=== PATIENT | male | born 1955 | race Caucasian/White ===

== ENCOUNTER 2023-12-12 13:00 | Outpatient (OUT) | payer MEDICARE, OTHER, SELFPAY ==
--- NOTE | 2023-12-12 13:23 | ECG_ITS ---
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
--- NOTE | 2023-12-12 14:17 | P.GSHP_ITS ---
History of Present Illness History of Present Illness Chief complaint: BPH with obs Narrative: Patient presents for preadmission testing. The patient reports a history of an elevated PSA, nocturia, intermittent urgency with urination, and occasional incomplete bladder emptying. The patient states he's had an MRI, a prostate biopsy, and a cystoscopy. He denies hematuria, dysuria, abdominal pain, fever, or any other complaints. Review of Systems ROS Narrative REVIEW OF SYSTEMS: Negative except as stated in HPI, ten or more systems reviewed. Constitutional: No fever , chills, weakness ENT: No sore throat or epistaxis Cardiovascular: No edema, chest pain, palpitations, or activity intolerance Respiratory: No shortness of breath, cough, or wheezing Musculoskeletal: No joint pain or swelling Gastrointestinal: No abdominal pain, constipation, diarrhea, or vomiting Genitourinary: No dysuria or hematuria Neurological: No numbness, tingling, weakness, or headache Psychiatric: No mood changes PFSH PFSH Medical History (Updated 12/12/23 @ 14:11 by Naila Bond NP) Chronic prostatitis ?N41.1 - Chronic prostatitis (ICD-10) Cough syncope ?R55 - Syncope and collapse (ICD-10) ?R05.4 - Cough syncope (ICD-10) BPH with obstruction/lower urinary tract symptoms ?N40.1 - Benign prostatic hyperplasia with lower urinary tract symptoms (ICD- 10) ?N13.8 - Other obstructive and reflux uropathy (ICD-10) COVID-19 (10/2021) ?U07.1 - COVID-19 (ICD-10) Sleep apnea ?G47.30 - Sleep apnea, unspecified (ICD-10) BPH (benign prostatic hyperplasia) ?N40.0 - Benign prostatic hyperplasia without lower urinary tract symptoms (ICD-10) Elevated PSA ?R97.20 - Elevated prostate specific antigen [PSA] (ICD-10) Heartburn ?R12 - Heartburn (ICD-10) Surgical History (Updated 12/12/23 @ 14:11 by Naila Bond NP) History of colonoscopy ?Z98.890 - Other specified postprocedural states (ICD-10) S/P cystoscopy ?Z98.890 - Other specified postprocedural states (ICD-10) Hx of prostate biopsy (08/30/22) ?Z98.890 - Other specified postprocedural states (ICD-10) History of arthroplasty of knee (06/20/22) ?Z96.659 - Presence of unspecified artificial knee joint (ICD-10) History of arthroplasty of knee (01/31/22) ?Z96.659 - Presence of unspecified artificial knee joint (ICD-10) Family History (Updated 12/12/23 @ 14:14 by Naila Bond NP) Other Alcoholism Depression Family history of cancer Heart disease Varicose veins of both lower extremities Social History (Updated 12/12/23 @ 13:47 by Naila Bond NP) Within the past year, how often did you have a drink containing alcohol: 2-3 times a week Smoking status: Never smoker Highest level of school completed/degree received: high school graduate Meds Home Medications and Allergies Home Medications Medication Instructions Recorded Confirmed Type dutasteride 0.5 mg capsule 0.5 mg PO DAILY 12/12/23 12/12/23 History tamsulosin 0.4 mg capsule (Flomax) 0.4 mg PO DAILY 12/12/23 12/12/23 History Allergies Allergy/AdvReac Type Severity Reaction Status Date / Time No Known Drug Allergies Allergy Verified 12/12/23 13:44 Exam Narrative Exam Narrative: Constitutional: Awake, alert, comfortable, well-appearing, nontoxic, interactive, vital signs as charted Head: Normocephalic, atraumatic Neck: Supple, normal appearance, normal range of motion, no meningeal signs, no lymphadenopathy Respiratory: No respiratory distress, breath sounds clear Cardiovascular: Regular rate and rhythm, strong and regular heart tones Abdomen: Nontender, normal bowel sounds, soft, no CVA tenderness Musculoskeletal: Normal gait, no swelling or edema Skin: No rashes or induration, no lesions, only visible skin inspected Neuro: No neurological deficits, normal sensation Psychiatric: Oriented ?3, normal affect Assessment and Plan Assessment and Plan (1) BPH with obstruction/lower urinary tract symptoms: (2) Elevated PSA: Plan Cystoscopy, transurethral resection of the prostate scheduled with Dr. Faulkner 12/26/2023.
[2023-12-12 14:19] LABS: Basophils Percent Auto 0.6 % (0.2-2.0); Eosinophils Percent Auto 0.6 % (0.9-7.0); Hematocrit 43.4 % (42.0-54.0); Hemoglobin 14.7 g/dL (14.0-18.0); Immature Granulocytes Abs Auto 0.01 10^3/uL (0.00-0.03); Immature Granulocytes Pct Auto 0.1 % (0.0-0.5); Lymphocytes Absolute Auto 1.7 10^3/uL (1.2-3.8); Lymphocytes Percent Auto 24.5 % (20.5-60.0); Mean Corpuscular HGB Conc 33.9 g/dL (29.9-35.2); Mean Corpuscular Hemoglobin 30.5 pg (25.9-34.0); Mean Platelet Volume 9.6 fL (9.5-13.5); Monocytes Absolute Auto 0.6 10^3/uL (0.3-0.8); Monocytes Percent Auto 8.1 % (1.7-12.0); Neutrophils Absolute Auto 4.6 10^3/uL (1.4-6.5); Neutrophils Percent Auto 66.1 % (43.0-75.0); Platelet Count 241 10^3/uL (150-450); Red Blood Count 4.82 10^6/uL (4.70-6.10); White Blood Count 6.9 10^3/uL (4.0-11.0)
[2023-12-12 14:35] LABS: INR 1.01; Partial Thromboplastin Time 28.9 sec (22.3-36.2); Prothrombin Time 10.7 sec (9.0-11.6)
[2023-12-12 14:41] LABS: Anion Gap 9.6; BUN Creatinine Ratio 10.6; Calcium 8.7 mg/dL (8.5-10.1); Carbon Dioxide 27.2 mmol/L (21.0-32.0); Chloride 106 mmol/L (98-107); Estimated GFR (African America >60 (>=60); Estimated GFR (Non-African Ame >60 (>=60); Glucose 117 mg/dL (74-106); Potassium 3.8 mmol/L (3.5-5.1); Sodium 139 mmol/L (136-145)
== END 2023-12-12 13:01 | disposition home or self-care (01) ==
LOC: PST 13:06
PROVIDERS: PCP Family Medicine; Visit Provider Urology
DX: Z01.810 Encounter for preprocedural cardiovascular examination (principal); Z01.812 Encounter for preprocedural laboratory examination; Z01.818 Encounter for other preprocedural examination
CPT/HCPCS: 80048; 85025; 85610; 85730; 93005; G0463

== ENCOUNTER 2023-12-26 09:14 | Day surgery (SDC) | payer MEDICARE, OTHER, SELFPAY ==
[2023-12-12 14:11] VITALS: BP 136/85; PULSE 99; RESP 18; TEMP 36.6; O2SAT 95; BMI 38.1
[2023-12-26] VITALS (12 sets, daily range): BP systolic 110–141; BP diastolic 68–83; PULSE 67–95; RESP 12–20; TEMP 35.9–37; O2SAT 92–100
--- OUTSIDE RECORDS SUMMARY | 2023-12-26 09:18 | XMS_ITS | CCD ---
Author Name Unknown Address [address] [place] [address] Organization [facility] Care Team Providers Care Manager Studio Name Role Phone EUSEBIA HOPPER Primary Care Physician Vida Ferrer Unavailable Unavailable Bunting, DO Laws Primary Care Provider [phone] MD Emmanuel Faulkner Attending Provider FRANKY, DR WHITE Admitting Unavailable FAULKNER, DR WHITE Attending Unavailable BUNTING, DR LAWS Primary Care Unavailable FAULKNER, DR WHITE Consulting Unavailable WEST, DR DELIA Medina Consulting Unavailable FAULKNER, DR WHITE Admitting Unavailable FAULKNER, DR WHITE Attending Unavailable BUNTING, DR LAWS Primary Care Unavailable FAULKNER, DR WHITE Consulting Unavailable GEMBUS, BERNARDO Consulting Unavailable Bunting, DO Laws Primary Care Provider Bunting, DO Laws Attending Provider Emmanuel Faulkner Admitting Unavailable Faulkner, Emmanuel Attending Unavailable Bunting, Eusebia Primary Care Unavailable Bunting, Eusebia Attending Unavailable Bunting, Eusebia Admitting Unavailable Bunting, Eusebia Primary Care Unavailable AIDA BRYAN Attending Unavailable FAULKNEREmmanuel Attending Unavailable FAULKNER, Emmanuel Mcgrath Attending Unavailable FAULKNER, Emmanuel Mcgrath Attending Unavailable FAULKNER, Emmanuel Mcgrath Admitting Unavailable FAULKNER, Emmanuel Mcgrtah Referring Unavailable AIDA BRYAN Attending Unavailable AIDA BRYAN Admitting Unavailable FAULKNER, Emmanuel Mcgrath Attending Unavailable FAULKNER, Emmanuel Mcgrath Attending Unavailable Allergies Allergy Classification Reported Allergen(s) Allergy Type Date of Onset Reaction(s) Facility (1 source) Unable to Assess Drug allergy (disorder) [address] [place] [address] Repository (1 source) No Known Medication Allergies; Translations: [No Known Medication Allergies] Propensity to adverse reactions (disorder) [facility] Repository Medications Current Medications Medication Drug Class(es) Dates Sig (Normalized) Sig (Original) acetaminophen 325 mg / HYDROcodone bitartrate 7.5 mg oral tablet (1 source) Opioid Agonist Start: 08-02-2022 take 1 tablet by mouth once Cummings 325 mg-7.5 mg oral tablet 1 tab(s), Oral, Once, 1 tab(s), Refill(s) 0, Take 1 hour prior to procedure. Don't drive or operate machinery while taking., [facility] [id number], 182, cm, 06/05/22 14:59:00 EDT, Height/Length Dosing, 126.5, kg, 06/05/22 14:59:00 EDT, Weight Dosing Start Date: 08/02/22 Status: Ordered aspirin 81 mg delayed release oral tablet (1 source) Platelet Aggregation Inhibitor, Nonsteroidal Anti-inflammatory Drug Start: 06-20-2022 End: 07-20-2022 take 2 tablets by mouth once daily Aspirin 81 mg Tab-EC 162 mg = 2 tab(s), Oral, Daily, X 30 day(s), # 60 tab(s), Refills(s) 0, Pharmacy: [facility] [id number], 182, cm, 06/05/22 14:59:00 EDT, Height/Length Dosing, 126.5, kg, 06/05/22 14:59:00 EDT, Weight Dosing Start Date: 06/20/22 Stop Date: 07/20/22 Status: Ordered celecoxib 100 mg oral capsule (5 sources) Nonsteroidal Anti-inflammatory Drug Start: 06-20-2022 take 1 capsule by mouth twice daily as needed for pain CeleBREX 100 mg Cap 100 mg = 1 cap(s), Oral, BID, PRN for pain, # 60 cap(s), Refills(s) 0, Pharmacy: [facility] [id number], 182, cm, 06/05/22 14:59:00 EDT, Height/Length Dosing, 126.5, kg, 06/05/22 14:59:00 EDT, Weight Dosing Start Date: 06/20/22 Status: Ordered cephalexin 500 mg oral capsule (1 source) Cephalosporin Antibacterial Start: 06-20-2022 End: 06-25-2022 take 1 capsule by mouth every eight hours Keflex 500 mg Cap 500 mg = 1 cap(s), Oral, q8hr, X 5 day(s), # 15 cap(s), Refills(s) 0, Pharmacy: [facility] [id number], 182, cm, 06/05/22 14:59:00 EDT, Height/Length Dosing, 126.5, kg, 06/05/22 14:59:00 EDT, Weight Dosing Start Date: 06/20/22 Stop Date: 06/25/22 Status: Ordered ciprofloxacin 500 mg oral tablet (1 source) Quinolone Antimicrobial Start: 09-18-2023 End: 10-09-2023 take 1 tablet by mouth every twelve hours Cipro 500 mg Tab 500 mg = 1 tab(s), Oral, q12hr, X 21 day(s), # 42 tab(s), Refills(s) 0, Pharmacy: [facility] [id number], 182, cm, 09/18/23 10:31:00 EDT, Height/Length Dosing, 124.8, kg, 09/18/23 10:31:00 EDT, Weight Dosing Start Date: 09/18/23 Stop Date: 10/09/23 Status: Ordered docusate sodium 100 mg oral capsule (3 sources) Start: 01-31-2022 take 1 capsule by mouth twice daily as needed for constipation Colace 100 mg Cap 100 mg = 1 cap(s), Oral, BID, PRN for constipation, # 20 cap(s), Refills(s) 0, Pharmacy: [facility] [id number], 182, cm, 01/17/22 5:59:00 EST, Height/Length Dosing, 129.4, kg, 01/17/22 5:59:00 EST, Weight Dosing Start Date: 01/31/22 Status: Ordered dutasteride 0.5 mg oral capsule (1 source) 5-alpha Reductase Inhibitor Start: 11-05-2023 take 1 capsule by mouth once daily dutasteride 0.5 mg Cap 0.5 mg = 1 cap(s), Oral, Daily, # 30 cap(s), Refills(s) 2, Pharmacy: [facility] [id number], 182, cm, 11/05/23 13:20:00 EST, Height/Length Dosing, 124.8, kg, 09/18/23 10:31:00 EDT, Weight Dosing Start Date: 11/05/23 Status: Ordered meloxicam 15 mg oral tablet (4 sources) Nonsteroidal Anti-inflammatory Drug Start: 02-01-2022 take 1 tablet by mouth once daily meloxicam 15 mg Tab 15 mg = 1 tab(s), Oral, Daily, # 30 tab(s), Refills(s) 2, Pharmacy: [facility] [id number], 182, cm, 01/17/22 5:59:00 EST, Height/Length Dosing, 129.4, kg, 01/17/22 5:59:00 EST, Weight Dosing Start Date: 02/01/22 Status: Ordered sulfamethoxazole 800 mg / trimethoprim 160 mg oral tablet (4 sources) Dihydrofolate Reductase Inhibitor Antibacterial, Sulfonamide Antimicrobial Start: 05-16-2022 End: 06-27-2022 take 1 tablet by mouth twice daily Bactrim DS 800 mg-160 mg Tab 1 tab(s), Oral, BID for 21 day(s), 42 tab(s), Refill(s) 1, [facility] [id number], 182, cm, 05/16/22 10:51:00 EDT, Height/Length Dosing, 131.2, kg, 05/16/22 10:51:00 EDT, Weight Dosing Start Date: 05/16/22 Stop Date: 06/27/22 Status: Ordered Start: 04-04-2022 End: 04-25-2022 take 1 tablet by mouth twice daily Bactrim DS 800 mg-160 mg Tab 1 tab(s), Oral, BID for 21 day(s), 42 tab(s), Refill(s) 0, [facility] [id number], 182, cm, 04/04/22 9:31:00 EDT, Height/Length Dosing, 131.2, kg, 04/04/22 9:31:00 EDT, Weight Dosing Start Date: 04/04/22 Stop Date: 04/25/22 Status: Ordered tamsulosin hydrochloride 0.4 mg oral capsule (11 sources) alpha-Adrenergic Nicanor Start: 09-18-2023 End: 09-12-2024 take 1 capsule by mouth twice daily tamsulosin 0.4 mg Cap 0.4 mg = 1 cap(s), Oral, BID, X 90 day(s), # 180 cap(s), Refills(s) 3, Pharmacy: [facility] [id number], 182, cm, 09/18/23 10:31:00 EDT, Height/Length Dosing, 124.8, kg, 09/18/23 10:31:00 EDT, Weight Dosing Start Date: 09/18/23 Stop Date: 09/12/24 Status: Ordered Start: 05-16-2022 take 1 capsule by [facility] once daily tamsulosin 0.4 mg Cap 0.4 mg = 1 cap(s), Oral, Daily, # 30 cap(s), Refills(s) 6, Pharmacy: [facility] [id number], 182, cm, 05/16/22 10:51:00 EDT, Height/Length Dosing, 131.2, kg, 05/16/22 10:51:00 EDT, Weight Dosing Start Date: 05/16/22 Status: Ordered Start: 04-04-2022 take 1 capsule by [facility] once daily tamsulosin 0.4 mg Cap 0.4 mg = 1 cap(s), Oral, Daily, # 30 cap(s), Refills(s) 6, Pharmacy: [facility] [id number], 182, cm, 04/04/22 9:31:00 EDT, Height/Length Dosing, 131.2, kg, 04/04/22 9:31:00 EDT, Weight Dosing Start Date: 04/04/22 Status: Ordered Completed/Discontinued Medications Medication Drug Class(es) Dates Sig (Normalized) Sig (Original) acetaminophen 325 mg / oxyCODONE hydrochloride 5 mg oral tablet (4 sources) Opioid Agonist Start: 06-20-2022 Percocet 325 mg-5 mg Tab See Instructions, as needed for pain, 50 tab(s), Refill(s) 0, 1-2 tab(s) Oral q4hr, [facility] [id number], 182, cm, 06/05/22 14:59:00 EDT, Height/Length Dosing, 126.5, kg, 06/05/22 14:59:00 EDT, Weight Dosing Start Date: 06/20/22 Status: Ordered Start: 01-31-2022 Percocet 325 m g-5 mg Tab See Instructions, as needed for pain, 50 tab(s), Refill(s) 0, 1-2 tab(s) Oral q4hr, [facility], 182, cm, 01/17/22 5:59:00 EST, Height/Length Dosing, 129.4, kg, 01/17/22 5:59:00 EST, Weight Dosing Start Date: 01/31/22 Status: Ordered doxycycline hyclate 100 mg oral capsule (2 sources) Tetracycline-class Drug Start: 09-18-2023 doxycy simmons hyclate 100 mg Cap 100 mg = 1 cap(s), Oral, As Directed, Patient to take 1 tab the day before procedure and the 2nd tab the day of procedure once completed, # 2 cap(s), Refills(s) 0, Pharmacy: [facility] [id number], 182, cm, 09/18/23 10:31:00 EDT, Height/Length Dosing, 124.8, kg, 09/18/23 10:31:00 EDT, Weight Dosing Start Date: 09/18/23 Status: Ordered Problems Problem Classification Problem Date Documented Da te Episodic/Chronic Abdominal pain (3 sources) Abdominal pain; Translations: [Unspecified abdominal pain] Onset: 12-05-2023 Episodic Disorders of lipid metabolism (1 source) Mixed hyperlipidemia; Translations: [Mixed hyperlipidemia] Onset: 02-19-2023 Chronic Genitourinary symptoms and ill-defined conditions (12 sources) Urgent desire to urinate; Translations: [Hematuria, unspecified] Onset: 09-07-2022 04-04-2022 Episodic Hyperplasia of prostate (18 sources) Benign prostatic hypertrophy with outflow obstruction; Translations: [Benign prostatic hyperplasia with lower urinary tract symptoms] Onset: 04-04-2022 Chronic Inflammatory conditions of male genital organs (6 sources) Chronic prostatitis; Translations: [Chronic prostatitis] Onset: 09-18-2023 Chronic Inflammatory conditions of male genital organs (14 sources) Prostatitis; Translations: [Inflammatory disease of prostate, unspecified] Onset: 04-04-2022 Episodic Mood disorders (12 sources) Depressive disorder; Translations: [Major depressive disorder, single episode, unspecified] Onset: 09-07-2022 04-04-2022 Chronic Osteoarthritis (20 sources) Arthritis; Translations: [Osteoarthritis of knee] Onset: 06-20-2022 04-04-2022 Chronic Other connective tissue disease (1 source) Presence of unspecified artificial knee joint; Translations: [PRESENCE UNS ARTIFICIAL KNEE JOINT] Onset: 09-07-2022 Chronic Other diseases of kidney and ureters (4 sources) Urinary tract obstruction; Translations: [Other obstructive and reflux uropathy] Onset: 04-04-2022 Episodic Other male genital disorders (2 sources) Disorder of penis; Translations: [Disorder of penis, unspecified] Onset: 04-04-2022 Chronic Other male genital disorders (11 sources) Lesion of penis 04-04-2022 Chronic Other male genital disorders (1 source) Disorder of penis, unspecified; Translations: [DISORDER OF PENIS UNSPECIFIED] Onset: 09-07-2022 Chronic Other male genital disorders (1 source) Hemospermia; Translations: [Hematospermia] Onset: 09-12-2022 Episodic Other screening for suspected conditions (not mental disorders or infectious disease) (20 sources) Raised prostate specific antigen; Translations: [Elevated prostate specific antigen [PSA]] Onset: 04-04-2022 Episodic Residual codes; unclassified (11 sources) Sleep apnea 01-16-2022 Chronic Unclassified (1 source) CONTACT W/AND (SUSP) EXPOS COVID-19; Translations: [CONTACT W/AND (SUSP) EXPOS COVID-19] Onset: 08-30-2022 Unclassified (1 source) Benign prostatic hyperplasia with lower urinary tract symptoms; Translations: [Benign prostatic hyperplasia with lower urinary tract symptoms] Onset: 09-12-2023 Results Test Name Value Interpretation Reference Range Facility C Urineon 12-07-2023 Bacteria identified Cx Nom (U) Microbiology PROCEDURE: Urine Culture [R1] SOURCE: U Random BODY SITE: COLLECTED DATE/TIME: 12/05/2023 14:39 EST RECEIVED DATE/TIME: 12/05/2023 17:49 EST START DATE/TIME: 12/05/2023 17:49 EST FREE TEXT SOURCE: AIDA BRYAN PA-C, PA-C, JENNIFER E FINAL REPORTS Final Report [] Verified Date/Time: 12/07/2023 08:22 EST 300 cfu/ml Mixed skin contaminants Performing Locations R1: This test was performed at: [facility], [address] [place] [address], [id number]- , [place], [facility] Comment on above: Performed By: #### [id number] ####[facility] [address] [place] [address] Screenson 12-06-2023 Screens [id number] .00TIFF Normal [facility] Ambulatory Visit Summaryon 0 12-05-2023 Ambulatory Visit Summary EMMANUEL PHAM Eriberto :1955 Visit Date:12/05/2023 Ambulatory Visit Instructions Your Diagnosis Flank pain BPH with obstruction/lower urinary tract symptoms Elevated PSA Chronic prostatitis Tests Performed Urnls Dip Stick Auto w/o Microscopy POC [id number] Your Care Team Attending Physician - AIDA BRYAN PA-C Primary Care Physician - EUSEBIA HOPPER DO This Is Your Medications List Contact prescribing physician if questions or concerns dutasteride (dutasteride 0.5 mg Cap) tamsulosin (tamsulosin 0.4 mg Cap) Procedures Performed Transperineal needle biopsy of prostate (08/30/2022), Arthroplasty (06/20/2022), Total knee replacement (01/31/2022), Colonoscopy, Colonoscopy, Polyp. Discharge Vitals Height 182 cm Height 72 in Weight 124.8 kg Weight 274.56 lb BMI 37.68 What to do next Scheduled Follow-Up Appointments Saturday 10:30 AM EST With: Where: [facility] [address] [place] [address]- \.br\ You Need to Schedule the Following Appointments\. br\ Follow Up with AIDA BRYAN PA-C, URL When: \.br\ Where:\.br\ [address]\ [place] [address]\.br \ [phone]\.br \ Medications\.b r\ What How Much When Instructions\. br\ Unchanged dutasteride (dutasteride 0.5 mg Cap) 1 Capsules By Mouth Every day Contact prescribing physician if questions or concerns \.br\ Unchanged tamsulosin (tamsulosin 0.4 mg Cap) 1 Capsules By Mouth 2 times a day Duration: 90 Days Contact prescribing physician if questions or concerns \.br\ Test Results\.br\ Urnls Dip Stick Auto w/o Microscopy POC 05262 (12/05/2023)\. br\ Bilirubin Urine Dipstick - Negative\.br\ Blood Urine Dipstick - Trace-intact\. br\ Glucose Urine Dipstick - Negative\.br\ Ketones Urine Dipstick - Negative\.br\ Leukocytes Urine Dipstick - 1+ Small\.br\ Nitrite Urine Dipstick - Negative\.br\ Protein Urine Dipstick - Negative\.br\ Specific [place] Urine Dipstick - 1.020\.br\ Urine Appearance Urine Dipstick - Clear\.br\ Urine Color Urine Dipstick - Yellow\.br\ Urobilinogen Urine Dipstick - Normal 0.2-1 EU/dl\.br\ pH Urine Dipstick - 7.5\.br\ Allergies\.br\ No Known Medication Allergies\.br\ Problems\.br\ Ongoing - Any problem that you are currently receiving treatment for.\.br\ Arthritis\.br\ BPH with obstruction/lo wer urinary tract symptoms\.br\ Chronic prostatitis\.b r\ Depression\.br \ Elevated PSA\.br\ Flank pain\.br\ Penile lesion\.br\ Prostatitis\.b r\ Urinary urgency\.br\ Patient Survey\.br\ You may receive a survey via text or e-mail asking about your office visit. Please share your experience with us by completing your survey. We appreciate your feedback and thank you for choosing us for your care.\.br\ \.br\ [facility] Consent for Procedure/Surger yon 12-05-2023 Consent for Procedure/Surgery [id number]# 1.00TIFF Normal [facility] Patient Educationon 12-05-19 24 Patient Education Orthopedics Flank Pain, Adult Flank pain is pain that is located on the side of the body between the upper abdomen and the spine. This area is called the flank. The pain may occur over a short period of time (acute), or it may be long-term or recurring (chronic). It may be mild or severe. Flank pain can be caused by many things, including: ? Muscle soreness or injury. ? Kidney infection, kidney stones, or kidney disease. ? Stress. ? A disease of the spine (vertebral disk disease). ? A lung infection (pneumonia). ? Fluid around the lungs (pulmonary edema). ? A skin rash caused by the chickenpox virus (shingles). ? Tumors that affect the back of the abdomen. ? Gallbladder disease. Follow these instructions at home: ? Drink enough fluid to keep your urine pale yellow. ? Rest as told by your health care provider. ? Take gvkp-kec-gaxzueb and prescription medicines only as told by your health care provider. ? Keep a journal to track what has caused your flank pain and what has made it feel better. ? Keep all follow-up visits. This is important. Contact a health care provider if: ? Your pain is not controlled with medicine. ? You have new symptoms. ? Your pain gets worse. ? Your symptoms last longer than 2?3 days. ? You have trouble urinating or you are urinating very frequently. Get help right away if: ? You have trouble breathing or you are short of breath. ? Your abdomen hurts or it is swollen or red. ? You have nausea or vomiting. ? You feel faint, or you faint. ? You have blood in your urine. ? You have flank pain and a fever. These symptoms may represent a serious problem that is an emergency. Do not wait to see if the symptoms will go away. Get medical help right away. Call your local emergency services (911 in the [place] Do not drive yourself to the hospital. Summary ? Flank pain is pain that is located on the side of the body between the upper abdomen and the spine. ? The pain may occur over a short period of time (acute), or it may be long-term or recurring (chronic). It may be mild or severe. ? Flank pain can be caused by many things. ? Contact your health care provider if your symptoms get worse or last longer than 2?3 days. This information is not intended to replace advice given to you by your health care provider. Make sure you discuss any questions you have with your health care provider. Document Revised: 01/29/2022 Document Reviewed: 01/29/2022 [employer] Patient Education ? 2022 [employer] [facility] Urology Office/Clinic Noteon 12-05-2023 Urology Office/Clinic Note Chief Complaint OV due to kidney pain HPI Staff Pt is here today for OV complaining of kidney pain. Previous DX: BPH with obstruction/lower urinary tract symptoms, chronic prostatitis, elevated PSA, penile lesion, urinary urgency. S/P Transperineal needle biopsy of prostate. Pt is currently taking Dutasteride and Flomax 0.4mg qd. According to last OV Flomax was increased to BID, Pt states he decreased to QD due to being told by someone in our office over the phone that this could be causing his issues. Pt wants to know whether to continue on Dutasteride medication. Dysuria: denies pain and burning Incomplete bladder emptying: denies Hematuria: denies visible blood Frequency: 6x a day Urgency: sometimes Nocturia: once a night Stream: occasional hesitant stream Leaking: denies Post void dripping: denies Wearing pads/ Depends: denies Urge incontinence: denies Stress incontinence: denies Incontinence without Sensory Awareness: denies Abdominal pain: denies Flank pain: Rt sided pain, Pt states his pain level has gone from 7-4 Sexual complaints: _ History of Present Illness staff HPI reviewed and agree. Review of Systems PHQ Score Initial Depression Screen Score: 0 SCORE no fever, chills, malaise, myalgia. no rash/lesions. no chest pain, palpitations, or SOB. no abdominal pain, nausea, vomiting. no unilateral calf swelling, redness, pain Physical Exam Vitals & Measurements HT: 72 in HT: 182 cm WT: 124.8 kg WT: 274.56 lb BMI: 37.68 General: nontoxic, NAD Mouth: moist mucosa Lungs: normal respiratory effort Cardio: regular rate, good distal perfusion Abdomen: nondistended, no suprapubic distention or tenderness, no CVA tenderness Neurologic: Grossly normal Skin: No rashes or suspicious lesions Assessment/Plan Dr. Faulkner pt 1. 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 Has had R sided pain which has subsided. However pt was concerned about kidney pain as he was under the impression that Dutasteride could cause kidney pain. Denies pain radiating. Denies hx of kidney stones. Took ibuprofen which relieved pain. Upon evaluation, pain was id'd to be lower than the kidneys and no pain w/ palpation. Advised pt the pain is likely musculoskeletal vs urological. Pt stopped the dutasteride already. this was only recently started in the last couple months. will have him stay off it since he has upcoming TURP in a few weeks and we would likely stop it after anyhow. -D/c Dutasteride 2. BPH with obstruction/lower urinary tract symptoms (N40.1: Benign prostatic hyperplasia with lower urinary tract symptoms) S/p Cysto 11/05/23 - extremely high obstructing median lobe, coapting lateral lobes, trilobar obstruction. IPSS 11 (6). Taking Tamsulosin 0.4mg bid, which was increased at prior OV. PVR today 146cc. -Cont Tamsulosin -has TURP scheduled 12/26/23 3. Elevated PSA (R97.20: Elevated prostate specific antigen [PSA]) PSA: 02/27/22 - 5.68 & 21% 05/16/22 - 4.90 09/12/23 - 4.54 S/P TRUS/bx 08/30/22 - All benign. Active chronic prostatitis x 1 core. Focal partial atrophy x 1 core. 4. Chronic prostatitis (N41.1: Chronic prostatitis) S/P TRUS/bx 08/30/22 - Active chronic prostatitis x 1 core. Pt was treated with Cipro x3 wks Sep 2023 due to trace leuks and odorous urine. UA today shows small leuks and trace blood so we will send for cx since he has upcoming TURP. Follow-up With When Contact Information AIDA BRYAN PA-C, URL [address] [place] [address] [phone] Additional Instructions: has TURP scheduled 12/26/23 Patient Education Flank Pain, Adult Documentation recorded by the scribe Dana Walker accurately reflects the services(s) I performed and decisions made by me. Authenticated by Aida Bryan PA-C on 12/05/2023 13:05:26. I, Dana Walker, personally scribed for Aida Bryan PA-C on 12/05/2023 12:45:50. . Problem List/Past Medical History Ongoing Arthritis BPH with obstruction/lower urinary tract symptoms Chronic prostatitis Depression Elevated PSA Flank pain Penile lesion Prostatitis Urinary urgency Historical No qualifying data Procedure/Surgical History Transperineal needle biopsy of prostate (08/30/2022), Arthroplasty (06/20/2022), Total knee replacement (01/31/2022), Colonoscopy, Colonoscopy, Polyp. Medications dutasteride 0.5 mg Cap, 0.5 mg= 1 cap(s), Oral, Daily, 2 refills tamsulosin 0.4 mg Cap, 0.4 mg= 1 cap(s), Oral, BID, 3 refills Allergies No Known Medication Allergies Social History Alcohol Current, 1-2 times per month, 01/16/2022 Substance Abuse - Denies Substance Abuse, 01/16/2022 Tobacco - Denies Tobacco Use, 01/16/2022 Never (less than 100 in lifetime) Tobacco Use:. Never Smokeless Tobacco Use:., 12/05/2023 Family History Family history is negative Immunizat (more content not included)... [facility] Comment on above: Result Comment: Elec tronically Signed By: IRVIN NORTON, AIDA Archuleta\.br\Date and Time Signed: 12/05/23 13:06 EST\.br\Electronically Co-Signed By: Dana Walker\.br\Date and Time Co-Signed: 12/05/23 12:46 EST Consent for Procedure/Surger yon 11-08-2023 Consent for Procedure/Surgery [id number] .00TIFF [facility] Consent for Procedure/Surger yon 11-05-2023 Consent for Procedure/Surgery [id number] .00TIFF [facility] Consent for Treatmenton Consent for Treatment [id number] .00TIFF Normal [facility] IntraOperative Documentson 1 01-06-2023 IntraOperative Documents [id number] .00TIFF Normal [facility] Main OR Intraoperative Recor don 11-05-2023 Main OR Intraoperative Record IntraOp Document Type FTURO Summary Primary Physician: Emmanuel FAULKNER MD Finalized Date/Time: 11/05/23 13:55:15 Pt. Name: EMMANUEL PHAM/Sex: 1955 Male Med Rec #: [id number] Physician: Emmanuel FAULKNER MD Financial #: [id number] Pt. Type: O Room/Bed: / Admit/Disch: 11/05/23 12:56:52 - Institution: Case Times FTURO Entry 1 Patient Times In Room 11/05/23 13:44:00 Out Room 11/05/23 13:59:00 Procedure Times Start 11/05/23 13:48:00 Stop 11/05/23 13:54:00 Anesthesia Times Last Modified By: Belkis TURK, SANDY, Ne 11/05/23 13:54:47 Case Attendance FTURO Entry 1 Entry 2 Entry 3 Case Attendee Emmanuel FAULKNER MD RN, BENIGNOOR, Amrit PURCELL, Delilah Olivia Role Performed Surgeon - Primary Superannuation Funds Manager - Primary Scrub - Primary Time In 11/05/23 13:44:00 11/05/23 13:44:00 11/05/23 13:44:00 Time Out 11/05/23 13:59:00 11/05/23 13:59:00 11/05/23 13:59:00 Procedure CYSTOSCOPY LOCAL(.) CYSTOSCOPY LOCAL(.) CYSTOSCOPY LOCAL(.) Comments Last Modified By: Belkis RN, CNOR, Belkis RN, BENIGNOOR, Belkis TURK, BENIGNOOR, Ne 11/05/23 Ne 11/05/23 Ne 11/05/23 13:54:48 13:54:48 13:54:48 Surgical Procedures FTURO Entry 1 Procedure Description Procedure CYSTOSCOPY LOCAL Modifiers . Surgeon Description cysto Primary Procedure Yes Primary Surgeon Emmanuel FAULKNER MD Start 11/05/23 13:48:00 Stop 11/05/23 13:54:00 Anesthesia Type Local Surgical Service Urology Wound Class 2 - Clean-Contaminated Last Modified By: SANDY Tamayo RN, Ruthann 11/05/23 13:54:51 General Case Data FTURO Pre-Care Text: Classifies surgical wound, implements aseptic technique, initiates traffic control Entry 1 Case Information OR URO 1 FT Case Level None Wound Class 2 - Clean-Contaminated Specialty Urology Preop Diagnosis BPH WITH LUTS, ELEVATED Postop Same As Preop No PSA Postop Diagnosis BPH WITH LUTS, trilobar Outcomes Met? Yes obstruction Last Modified By: SANDY Tamayo RN, Ruthann 11/05/23 13:54:39 Post-Care Text: The patient is free from signs and symptoms of infection EU IntraOp - FTURO Pre-Care Text: Implements protective measures prior to operative or invasive procedure, confirms identity before the operative or invasive procedure, verifies operative procedure, surgical site, and laterality Entry 1 EU Perioperative Protocols Procedure(s) CYSTOSCOPY LOCAL(.) Patient Identity Birthday, ID Band Verified (select at Check, Patient least 2): Participation Consents / H and P HandP, Surgery/Procedure Operative Site N/A Verified Consent Marking Verified Surgical Site Yes Laterality Verified n/a Verified Procedure Verified Yes Correct Patient Yes Position Verified Availability Equipment, Medication Time Out Emmanuel FAULKNER MD, Verified (If Participants Belkis TURK, BENIGNOOR, Applicable) Amrit Olivia CST, Kimberly A Time Out Complete 11/05/23 13:46:00 Allergies Reviewed? Yes Allergies Reviewed Self/Patient With Body Position Supine Prep Area penis Prep Agents Betadine Solution Skin. Condition Unable to Visualize Additional None Specimens Collected Vitals - EU Blood Pressure 151/80 Pulse 80 bpm Respirations 20 br/min SPO2 EBL 0 IandO - EU Total Intake 0 mL Total Output 0 mL Outcomes Met? Yes Last Modified By: SANDY Tamayo RN, Ruthann 11/05/23 13:46:59 Post-Care Text: The patient is free from signs and symptoms of injury caused by extraneous objects Sign Out FTURO Entry 1 Before Patient Leaves OR Nurse verbally Yes Nurse verbally n/a confirms with the confirms with the team the name of team that the procedure(s) instrument, sponge, recorded and needle counts are correct (or N/A) Nurse verbally n/a Nurse verbally n/a confirms with the confirms with the team how the team whether there specimen is labeled are any equipment (including patient problems to be name), if applicable addressed Sign Out Complete 11/05/23 13:58:00 Last Modified By: SANDY Tamayo RN, Ruthann 11/05/23 13:54:58 Case Comments Finalized By: SANDY Tamayo RN, Ruthann Document Signatures Signed By: SANDY Tamayo RN, Ruthann 11/05/23 13:54 SANDY Tamayo RN, Ruthann 11/05/23 13:55 Normal [facility] Main OR Preoperative Recordo n 11-05-2023 Main OR Preoperative Record Holding Area Document Type FTURO Summary Primary Physician: Emmanuel FAULKNER MD Finalized Date/Time: 11/05/23 13:45:17 Pt. Name: EMMANUEL PHAM D.O.B./Sex: 1955 Male Med Rec #: [id number] Physician: Emmanuel FAULKNER MD Financial #: [id number] Pt. Type: O Room/Bed: / Admit/Disch: 11/05/23 12:56:52 - Institution: Case Times Holding FTURO Pre-Care Text: Verifies consent for planned procedure, identifies individual values and wishes concerning care, includes family members in perioperative teaching Secures patient's records' belongings, and valuables, maintains patient's dignity and privacy, and maintains patient confidentiality Entry 1 In Holding 11/05/23 13:07:00 Outcomes Met? Yes Last Modified By: Delilah Galvez RN 11/05/23 13:07:14 Post-Care Text: The patient participates in decisions affecting his or her perioperative plan of care The patient's right to privacy is maintained Surgery Checklist FTURO Entry 1 Patient Birthday, ID Band Procedure History and Physical, Identification: Check, Patient Verification: Surgical Consent, With Participation Patient NPO after Midnight: n/a Personal Items: Glasses Personal Items GLASSES FOR READING ONLY Limitations: UP AD MELINDA Comment: Complaints of Pain: No Pain Comment: 0/10 Skin Integrity Dry, Warm Vitals - EU Blood Pressure 151/80 Pulse 82 bpm Respirations 20 br/min SPO2 96 % Additional None RN Reviewed Yes Specimens Collected Last Modified By: Delilah Galvez RN 11/05/23 13:10:59 General Comments: TEMP 98.8F. ROSALEE OVALLE Finalized By: Belkis TURK, Ne DELGADO Document Signatures Signed By: Delilah Galvez RN 11/05/23 13:11 SANDY Tamayo RN, Ruthann 11/05/23 13:45 Normal [facility] Operative Reporton Operative Report Patient: EMMANUEL PHAM Age: 67 years Sex: Male : 1955 Associated Diagnoses: None Author: Emmanuel FAULKNER MD Procedure Operative Information Details: Date/ Time: 11/05/2023 14:06:00. Pre-Op Dx: BPH w/ LUTS - N40.1, Incomplete Bladder Emptying - R39.14. Post-Op Dx: Same. Anesthesia Type: Local. Procedure: Local Cystoscopy. Complications: None. Risks/Benefits/Inform ed Consent: Surgical risks, benefits, details of the procedure have been explained to the patient, Full informed consent has been obtained. Intraoperative Information Prepped: Patient is brought back to the endoscopy suite, Patient is placed in supine position, Patient prepped in the usual fashion with Betadine solution, 2% Xylocaine Jelly is placed per Urethra, After waiting several minutes the Cystoscope is introduced. The Urethra is: Normal. The Prostatic Urethra is: Obstructed, Median Lobe, Extremely high obstructing median lobe. Coapting lateral lobes., Trilobar obstruction.. The Bladder is: Trabeculated (Moderate (2), Open diverticuli diffusely. No bladder tumors.). The ureteral orifices: Show efflux of clear urine. Devices Implanted: None. Removal: Cystoscope is removed, The patient tolerated it well. Postoperative Information Discharge: Patient is discharged home with antibiotic coverage, Follow up arranged. Normal [facility] Comment on above: Result Comment: Elec tronically Signed By: Emmanuel FAULKNER MD\.br\Date and Time Signed: 11/05/23 14:12 EST Outpatient Surgery Discharge Instructionon 11-05-2023 Outpatient Surgery Discharge Instruction [id number] .[id number] [facility] Ambulatory Visit Summaryon 1 Ambulatory Visit Summary ANKITEMMANUEL Eriberto :1955 Visit Date:09/18/2023 Ambulatory Visit Instructions Your Diagnosis Elevated PSA BPH with obstruction/lower urinary tract symptoms Chronic prostatitis Tests Performed Urnls Dip Stick Auto w/o Microscopy POC 17840 Your Care Team Attending Physician - Emmanuel FAULKNER MD Primary Care Physician - EUSEBIA HOPPER DO This Is Your Medications List ciprofloxacin (Cipro 500 mg Tab) doxycycline (doxycycline hyclate 100 mg Cap) tamsulosin (tamsulosin 0.4 mg Cap) Contact prescribing physician if questions or concerns celecoxib (CeleBREX 100 mg Cap) Procedures Performed Transperineal needle biopsy of prostate (08/30/2022), Arthroplasty (06/20/2022), Total knee replacement (01/31/2022), Colonoscopy, Colonoscopy, Polyp. Discharge Vitals Heart Rate (Peripheral) 73 Blood Pressure 140/86 Height 182 cm Height 72 in Weight 124.8 kg Weight 274.56 lb BMI 37.68 What to do next You Need to Schedule the Following Appointments Follow Up with Emmanuel FAULKNER MD, DORA When: Where: [facility] [address] , [place] [address]- Medications What How Much When Instructions New ciprofloxacin (Cipro 500 mg Tab) 1 Tablets By Mouth Every 12 hours Duration: 21 Days Pickup at [email or web address] [phone] New doxycycline (doxycycline hyclate 100 mg Cap) 1 Capsules By Mouth As Directed Patient to take 1 tab the day before procedure and the 2nd tab the day of procedure once completed Pickup at [facility] [id number] Changed tamsulosin (tamsulosin 0.4 mg Cap) 1 Capsules By Mouth 2 times a day Duration: 90 Days Pickup at [facility] [phone] Unchanged celecoxib (CeleBREX 100 mg Cap) 1 Capsules By Mouth 2 times a day as needed for for pain Contact prescribing physician if questions or concerns Pharmacy Information [facility]: [address] [place], [place] [phone] Test Results Urnls Dip Stick Auto w/o Microscopy POC 40362 (09/18/2023) Bilirubin Urine Dipstick - Negative Blood Urine Dipstick - Negative Glucose Urine Dipstick - Negative Ketones Urine Dipstick - Negative Leukocytes Urine Dipstick - Trace Nitrite Urine Dipstick - Negative Protein Urine Dipstick - Negative Specific [place] Urine Dipstick - 1.010 Urine Appearance Urine Dipstick - Clear Urine Color Urine Dipstick - Yellow Urobilinogen Urine Dipstick - Normal 0.2-1 EU/dl pH Urine Dipstick - 7 Allergies No Known Medication Allergies Problems Ongoing - Any problem that you are currently receiving treatment for. Arthritis BPH with obstruction/lower urinary tract symptoms Chronic prostatitis Depression Elevated PSA Penile lesion Prostatitis Urinary urgency [employer] Benign Prostatic Hyperplasia Benign prostatic hyperplasia (BPH) is an enlarged prostate gland that is caused by the normal aging process. The prostate may get bigger as a man gets older. The condition is not caused by cancer. The prostate is a walnut-sized gland that is involved in the production of semen. It is located in front of the rectum and below the bladder. The bladder stores urine. The urethra carries stored urine out of the body. An enlarged prostate can press on the urethra. This can make it harder to pass urine. The buildup of urine in the bladder can cause infection. Back pressure and infection may progress to bladder damage and kidney (renal) failure. What are the causes? This condition is part of the normal aging process. However, not all men develop problems from this condition. If the prostate enlarges away from the urethra, urine flow will not be blocked. If it enlarges toward the urethra and compresses it, there will be problems passing urine. What increases the risk? This condition is more likely to develop in men older than 50 years. What are the signs or symptoms? Symptoms of this condition include: ? Getting up often during the night to urinate. ? Needing to urinate frequently during the day. ? Difficulty starting urine flow. ? Decrease in size and strength of your urine stream. ? Leaking (dribbling) after urinating. ? Inability to pass urine. This needs immediate treatment. ? Inability to completely empty your bladder. ? Pain when you pass urine. This is more common if there is also an infection. ? Urinary tract infection (UTI). How is this diagnosed? This condition is diagnosed based on your medical history, a physical exam, and your symptoms. Tests will also be done, such as: ? A post-void bladder scan. This measures any amount of urine that may remain in your bladder after you finish urinating. ? A digital rectal exam. In a rectal exam, your health care provider checks your prostate by putting a lubricated, gloved finger into your rectum to feel the back of your prostate gland. This exam detects the size of your gland and any abnormal lumps or g (more content not included)... Normal [facility] Ambulatory Visit Summary EMMANUEL PHAM :1955 Visit Date:09/18/2023 Ambulatory Visit Instructions Your Diagnosis Elevated PSA BPH with obstruction/lower urinary tract symptoms Chronic prostatitis Tests Performed Urnls Dip Stick Auto w/o Microscopy POC 38432 Your Care Team Attending Physician - Emmanuel FAULKNER MD Primary Care Physician - EUSEBIA HOPPER DO This Is Your Medications List tamsulosin (tamsulosin 0.4 mg Cap) Contact prescribing physician if questions or concerns celecoxib (CeleBREX 100 mg Cap) Procedures Performed Transperineal needle biopsy of prostate (08/30/2022), Arthroplasty (06/20/2022), Total knee replacement (01/31/2022), Colonoscopy, Colonoscopy, Polyp. Discharge Vitals Heart Rate (Peripheral) 73 Blood Pressure 140/86 Height 182 cm Height 72 in Weight 124.8 kg Weight 274.56 lb BMI 37.68 What to do next You Need to Schedule the Following Appointments Follow Up with Emmanuel FAULKNER MD, DORA When: Where: [facility] [address] , [place] [address]- Medications What How Much When Instructions Unchanged tamsulosin (tamsulosin 0.4 mg Cap) 1 Capsules By Mouth Every day Duration: 90 Days Unchanged celecoxib (CeleBREX 100 mg Cap) 1 Capsules By Mouth 2 times a day as needed for for pain Contact prescribing physician if questions or concerns Test Results Urnls Dip Stick Auto w/o Microscopy POC 70808 (09/18/2023) Bilirubin Urine Dipstick - Negative Blood Urine Dipstick - Negative Glucose Urine Dipstick - Negative Ketones Urine Dipstick - Negative Leukocytes Urine Dipstick - Trace Nitrite Urine Dipstick - Negative Protein Urine Dipstick - Negative Specific [place] Urine Dipstick - 1.010 Urine Appearance Urine Dipstick - Clear Urine Color Urine Dipstick - Yellow Urobilinogen Urine Dipstick - Normal 0.2-1 EU/dl pH Urine Dipstick - 7 Allergies No Known Medication Allergies Problems Ongoing - Any problem that you are currently receiving treatment for. Arthritis BPH with obstruction/lower urinary tract symptoms Chronic prostatitis Depression Elevated PSA Penile lesion Prostatitis Urinary urgency Education [employer] Benign Prostatic Hyperplasia Benign prostatic hyperplasia (BPH) is an enlarged prostate gland that is caused by the normal aging process. The prostate may get bigger as a man gets older. The condition is not caused by cancer. The prostate is a walnut-sized gland that is involved in the production of semen. It is located in front of the rectum and below the bladder. The bladder stores urine. The urethra carries stored urine out of the body. An enlarged prostate can press on the urethra. This can make it harder to pass urine. The buildup of urine in the bladder can cause infection. Back pressure and infection may progress to bladder damage and kidney (renal) failure. What are the causes? This condition is part of the normal aging process. However, not all men develop problems from this condition. If the prostate enlarges away from the urethra, urine flow will not be blocked. If it enlarges toward the urethra and compresses it, there will be problems passing urine. What increases the risk? This condition is more likely to develop in men older than 50 years. What are the signs or symptoms? Symptoms of this condition include: ? Getting up often during the night to urinate. ? Needing to urinate frequently during the day. ? Difficulty starting urine flow. ? Decrease in size and strength of your urine stream. ? Leaking (dribbling) after urinating. ? Inability to pass urine. This needs immediate treatment. ? Inability to completely empty your bladder. ? Pain when you pass urine. This is more common if there is also an infection. ? Urinary tract infection (UTI). How is this diagnosed? This condition is diagnosed based on your medical history, a physical exam, and your symptoms. Tests will also be done, such as: ? A post-void bladder scan. This measures any amount of urine that may remain in your bladder after you finish urinating. ? A digital rectal exam. In a rectal exam, your health care provider checks your prostate by putting a lubricated, gloved finger into your rectum to feel the back of your prostate gland. This exam detects the size of your gland and any abnormal lumps or growths. ? An exam of your urine (urinalysis). ? A prostate specific antigen (PSA) screening. This is a blood test used to screen for prostate cancer. ? An ultrasound. This test uses sound waves to electronically produce a picture of your prostate gland. Your health care provider may refer you to a specialist in kidney and prostate diseases (urologist). How is this treated? Once symptoms begin, your health care provider will monitor your condition (active surveillance or watchful waiting). Treatment for this condition will depend on the severity o (more content not included)... Normal [facility] Patient Educationon 09-18-20 Patient Education Urology Benign Prostatic Hyperplasia Benign prostatic hyperplasia (BPH) is an enlarged prostate gland that is caused by the normal aging process. The prostate may get bigger as a man gets older. The condition is not caused by cancer. The prostate is a walnut-sized gland that is involved in the production of semen. It is located in front of the rectum and below the bladder. The bladder stores urine. The urethra carries stored urine out of the body. An enlarged prostate can press on the urethra. This can make it harder to pass urine. The buildup of urine in the bladder can cause infection. Back pressure and infection may progress to bladder damage and kidney (renal) failure. What are the causes? This condition is part of the normal aging process. However, not all men develop problems from this condition. If the prostate enlarges away from the urethra, urine flow will not be blocked. If it enlarges toward the urethra and compresses it, there will be problems passing urine. What increases the risk? This condition is more likely to develop in men older than 50 years. What are the signs or symptoms? Symptoms of this condition include: ? Getting up often during the night to urinate. ? Needing to urinate frequently during the day. ? Difficulty starting urine flow. ? Decrease in size and strength of your urine stream. ? Leaking (dribbling) after urinating. ? Inability to pass urine. This needs immediate treatment. ? Inability to completely empty your bladder. ? Pain when you pass urine. This is more common if there is also an infection. ? Urinary tract infection (UTI). How is this diagnosed? This condition is diagnosed based on your medical history, a physical exam, and your symptoms. Tests will also be done, such as: ? A post-void bladder scan. This measures any amount of urine that may remain in your bladder after you finish urinating. ? A digital rectal exam. In a rectal exam, your health care provider checks your prostate by putting a lubricated, gloved finger into your rectum to feel the back of your prostate gland. This exam detects the size of your gland and any abnormal lumps or growths. ? An exam of your urine (urinalysis). ? A prostate specific antigen (PSA) screening. This is a blood test used to screen for prostate cancer. ? An ultrasound. This test uses sound waves to electronically produce a picture of your prostate gland. Your health care provider may refer you to a specialist in kidney and prostate diseases (urologist). How is this treated? Once symptoms begin, your health care provider will monitor your condition (active surveillance or watchful waiting). Treatment for this condition will depend on the severity of your condition. Treatment may include: ? Observation and yearly exams. This may be the only treatment needed if your condition and symptoms are mild. ? Medicines to relieve your symptoms, including: ? Medicines to shrink the prostate. ? Medicines to relax the muscle of the prostate. ? Surgery in severe cases. Surgery may include: ? Prostatectomy. In this procedure, the prostate tissue is removed completely through an open incision or with a laparoscope or robotics. ? Transurethral resection of the prostate (TURP). In this procedure, a tool is inserted through the opening at the tip of the penis (urethra). It is used to cut away tissue of the inner core of the prostate. The pieces are removed through the same opening of the penis. This removes the blockage. ? Transurethral incision (TUIP). In this procedure, small cuts are made in the prostate. This lessens the prostate's pressure on the urethra. ? Transurethral microwave thermotherapy (TUMT). This procedure uses microwaves to create heat. The heat destroys and removes a small amount of prostate tissue. ? Transurethral needle ablation (TUNA). This procedure uses radio frequencies to destroy and remove a small amount of prostate tissue. ? Interstitial laser coagulation (ILC). This procedure uses a laser to destroy and remove a small amount of prostate tissue. ? Transurethral electrovaporization (TUVP). This procedure uses electrodes to destroy and remove a small amount of prostate tissue. ? Prostatic urethral lift. This procedure inserts an implant to push the lobes of the prostate away from the urethra. Follow these instructions at home: ? Take [id number] and prescription medicines only as told by your health care provider. ? Monitor your symptoms for any changes. Contact your health care provider with any changes. ? Avoid drinking large amounts of liquid before going to bed or out in public. ? Avoid or reduce how much caffeine or alcohol you drink. ? Give yourself time when you urinate. ? Keep all follow-up visits. This is important. Contact a health care provider if: ? You have unexplained back pain. ? Your symptoms do not get better with treatment. ? You develop side effects from the medicine (more content not included)... Normal [facility] Screenson 09-18-2023 Screens [id number] Normal [facility] Urology Office/Clinic Noteon 09-18-2023 Urology Office/Clinic Note Chief Complaint 1 year follow up HPI Staff 1 year follow up w/PSA. Current PSA 4.540 done 09/12/23, previous PSA 5.680 & 21% done 02/27/22. Previous DX: BPH w/ obstruction/lower urinary tract symptoms, elevated PSA, penile lesion, prostatitis, urinary urgency. S/P Transperineal biopsy done on 08/30/22. Pathology from 08/30/22 was negative. *Tamsulosin 0.4mg qd. IPSS 6. Dysuria: denies pain or burning Incomplete bladder emptying: sometimes Hematuria: denies visible blood Frequency: yes due to drinking coffee Urgency: denies Nocturia: 1x a night Stream: denies hesitancy, medium stream Leaking: yes sometimes before starting stream Post void dripping: denies Wearing pads/ Depends: denies Urge incontinence: denies Stress incontinence: denies Incontinence without Sensory Awareness: denies Abdominal pain: denies Flank pain: possible back pain, but may be muscle pain Sexual complaints: denies History of Present Illness Tests reviewed: reviewed UA, PSA I have reviewed the previous health record information and history for this patient from Dr. Faulkner. I have reviewed and verified the staff HPI to be accurate for this encounter. There have been no associated fever, chills, flank pain, or blood in the urine. Denies any urinary infections since last encounter. Review of Systems PHQ Score Initial Depression Screen Score: 0 ROS - Provider Constitutional: denies weight loss, denies hot flashes. Eyes: denies eye problems. Gastrointestinal: denies nausea, denies vomiting. Cardiovascular: denies chest pain or angina. Integumentary: no dryness Musculoskeletal: denies musculoskeletal symptoms. ENMT: denies otolaryngeal symptoms. Respiratory: no shortness of breath. Heme/Lymph: denies easy bleeding tendency, denies easy bruising tendency. Psychiatric: no confusion, no anxiety. Genitourinary: See HPI. Physical Exam Vitals & Measurements HR: 73(Peripheral) BP: 140/86 HT: 72 in HT: 182 cm WT: 124.8 kg WT: 274.56 lb BMI: 37.68 General Appearance: alert, no distress, well nourished, well developed male. Genitourinary: normal scrotum, normal testes, normal urethra, normal epididymis, normal vas deferens/spermatic cord. Flank Pain: none. Bladder: nonpalpable. Assessment/Plan 1. Elevated PSA (R97.20: Elevated prostate specific antigen [PSA]) PSA: 02/27/22 - 5.68 & 21% 05/16/22 - 4.90 09/12/23 - 4.54 S/P TRUS/bx 08/30/22 - All benign. Active chronic prostatitis x 1 core. Focal partial atrophy x 1 core. PSA decreased from prior. Will cont to monitor. -PSA in 6 mos. 2. BPH with obstruction/lower urinary tract symptoms (N40.1: Benign prostatic hyperplasia with lower urinary tract symptoms) Taking Flomax 0.4 mg qd. IPSS 6. Does not feel he is voiding well. Frequency with coffee. Had two episodes of urge to void but unable to void. Pt does not recall if there was a trigger. Educated pt weight loss may help with urgency. Discussed different treatment options for bladder outlet obstruction including oral medications, operative interventions such as TURP, versus less invasive options such as Rezum or Urolift, depending on prostate size and shape. Educational pamphlets provided. -Increase Flomax to bid. Rx sent to [facility]. -Will schedule cysto to eval CONDE, IMELDA. The risks and benefits for cystoscopy have been discussed. The risks include bleeding, infection, and irritation of the bladder and urinary channel, among others. The patient, after being informed of procedural details and after questions have been answered, wishes to proceed. Full informed consent has been obtained. Will order Local anesthesia. 3. Chronic prostatitis (N41.1: Chronic prostatitis) S/P TRUS/bx 08/30/22 - Active chronic prostatitis x 1 core. UA shows trace leuks. Shares his urine has an odor. Indicates that pt is not voiding well. Educated pt how CONDE contributes to prostatitis and subsequently PSA elevation/fluctuation . -Start Cipro 500 mg bid x 3 weeks. Rx sent to [facility]. Follow-up With When Contact Information FRANKY CARLSON, Emmanuel Mcgrath, URL [facility] [address], [place] [address]- Additional Instructions: schedule cysto to eval CONDE, IMELDA Patient Education Benign Prostatic Hyperplasia I, Anais Augustin, personally scribed for Dr. Faulkner on 09/18/2023 10:57:48. . Documentation recorded by the scribe, Anais Augustin, accurately reflects the services(s) I performed and decisions made by me. Authenticated by Dr. Faulkner on 09/18/2023 11:02:14. Problem List/Past Medical History Ongoing Arthritis BPH with obstruction/lower urinary tract symptoms Chronic prostatitis Depression Elevated PSA Penile lesion Prostatitis Urinary urgency Historical No qualifying data Procedure/Surgical History Transperineal needle biopsy of prostate (08/30/2022), Arthroplasty (06/20/2022), Total knee replacement (01/31/2022), Colonoscopy, Colonoscopy, Polyp. (more content not included)... Normal [facility] Comment on above: Result Comment: Elec tronically Signed By: Emmanuel FAULKNER MD\.br\Date and Time Signed: 09/18/23 11:02 EDT\.br\Electronically Co-Signed By: Anais Augustin\.br\Date and Time Co-Signed: 09/18/23 10:58 EDT Lab Reportson 09-14-2023 Lab Reports [id number] Normal [facility] PSA Total (Not a Screen)on PSA Total (Not a Screen) 4.540 ng/mL High 0.000-4.000 [facility] Comment on above: Result Comment: PERF ORMED BY: [place] [address] PATHOLOGIST WHEEL AND AXLE INSPECTOR JOLANTA HINDS M.D. Performed By: #### P SATOTAL #### [address] A1C with Estimated Average G christopher 02-19-2023 Glucose [Mass/Vol] 120 mg/dL Normal [facility] Comment on above: Result Comment: PERF ORMED BY: [place] [address] PATHOLOGIST WHEEL AND AXLE INSPECTOR JOLANTA HINDS M.D. Performed By: #### C MP, LIPID, CBC, A1C WT eA #### [address] HbA1c (Bld) [Mass fraction] 5.8 % High 4.3-5.6 [facility] Comment on above: Result Comment: Incr eased risk for diabetes: 5.7 - 6.4 diabetes: >6.4 glycemic control for adults with diabetes: <7.0 Performed By: #### C MP, LIPID, CBC, A1C WTH eA #### [place] [address] [place] Alanine aminotransferase [En zymatic activity/volume] in Serum or PlasmaOrdered By: Eusebia Bunting on 02-19-2023 ALT [Catalytic activity/Vol] 18 U/L 7-52 [facility] Albumin [Mass/volume] in Ser um or Plasma by Bromocresol green (BCG) dye binding methoOrdered By: Eusebia Bunting on 02-19-2023 Albumin BCG dye [Mass/Vol] 4.2 g/dL 3.5-5.7 [facility] Alkaline phosphatase [Enzyma tic activity/volume] in Serum or PlasmaOrdered By: Eusebia Bunting on 02-19-2023 ALP [Catalytic activity/Vol] 68 U/L 34-104 [facility] Aspartate aminotransferase [ Enzymatic activity/volume] in Serum or PlasmaOrdered By: Eusebia Bunting on 02-19-2023 AST [Catalytic activity/Vol] 17 U/L 13-39 [facility] Basophils Auto (Bld) [#/Vol] Ordered By: Eusebia Bunting on 02-19-2023 Basophils (Bld) [#/Vol] 0.0 10*3/uL 0.0-0.2 [facility] Basophils/100 WBC Auto (Bld) Ordered By: Eusebia Bunting on 02-19-2023 Basophils/100 WBC (Bld) 0.4 % . [facility] Bilirubin.total [Mass/volume ] in Serum or PlasmaOrdered By: Eusebia Bunting on 02-19-2023 Bilirubin [Mass/Vol] 0.6 mg/dL 0.3-1.0 [facility] Calcium [Mass/volume] in Ser um or PlasmaOrdered By: Eusebia Bunting on 02-19-2023 Calcium [Mass/Vol] 9.2 mg/dL 8.6-10.3 [facility] Carbon dioxide, total [Moles /volume] in Serum or PlasmaOrdered By: Eusebia Bunting on 02-19-2023 CO2 [Moles/Vol] 25.4 mmol/L 21.0-31.0 [facility] Chloride [Moles/volume] in S jakub or PlasmaOrdered By: Eusebia Bunting on 02-19-2023 Chloride [Moles/Vol] 106 mmol/L 98-107 [facility] Cholesterol [Mass/volume] in Serum or PlasmaOrdered By: Eusebia Bunting on 02-19-2023 Cholesterol [Mass/Vol] 194 mg/dL 140-200 [facility] Comment on above: Chol less than 200 m g/dl low riskChol 201-239 mg/dl borderline riskChol 240 mg/dl and greater high risk Cholesterol in LDL Calc [Mas s/Vol]Ordered By: Eusebia Bunting on 02-19-2023 Cholesterol in LDL [Mass/Vol] 122 mg/dL 0-100 [facility] Comment on above: LDL ATP III CLASSIFI CATIONLDL less than 100 mg/dL OptimalLDL 100-129 mg/dL Near or above optimalLDL 130-159 mg/dL Borderline highLDL 160-189 mg/dL HighLDL greater than 189 mg/dL Very high Cholesterol in VLDL Calc [Ma ss/Vol]Ordered By: Eusebia Hopper on 02-19-2023 Cholesterol in VLDL [Mass/Vol] 34 mg/dL [facility] Complete Blood Count Auto Di ffon 02-19-2023 Basophils (Bld) [#/Vol] 0.0 10*3/uL Normal 0.0-0.2 [facility] Comment on above: Result Comment: PERF ORMED BY: [place] [address] PATHOLOGIST WHEEL AND AXLE INSPECTOR JOLANTA HINDS M.D. Performed By: #### C MP, LIPID, CBC, A1C WTH eA #### [facility] [address] Basophils/100 WBC (Bld) 0.4 % Normal . [facility] Comment on above: Performed By: #### C MP, LIPID, CBC, A1C WTH eA #### [facility] [address] [place] [address] [place] Eosinophils (Bld) [#/Vol] 0.1 10*3/uL Normal 0.0-0.45 [facility] Comment on above: Performed By: #### C MP, LIPID, CBC, A1C WTH eA #### [facility] [address] [place] [address] [place] Eosinophils/100 WBC (Bld) 1.3 % Normal . [facility] Comment on above: Performed By: #### C MP, LIPID, CBC, A1C WTH eA #### [facility] [address] [place] [address] [place] Erythrocyte distribution width (RBC) [Ratio] 13.2 % Normal 12.0-14.8 [facility] Comment on above: Performed By: #### C MP, LIPID, CBC, A1C WTH eA #### [facility] [address] [place] [address] [place] Hematocrit (Bld) [Volume fraction] 45.5 % Normal 38.8-50.0 [facility] Comment on above: Performed By: #### C MP, LIPID, CBC, A1C WTH eA #### [address] Hemoglobin (Bld) [Mass/Vol] 15.4 g/dL Normal 13.0-17.0 [facility] Comment on above: Performed By: #### C MP, LIPID, CBC, A1C WTH eA #### [address] Lymphocytes (Bld) [#/Vol] 1.9 10*3/uL Normal 1.00-4.8 [facility] Comment on above: Performed By: #### C MP, LIPID, CBC, A1C WTH eA #### [address] Lymphocytes/100 WBC (Bld) 31.8 % Normal . [facility] Comment on above: Performed By: #### C MP, LIPID, CBC, A1C WTH eA #### [address] MCH (RBC) [Entitic mass] 30.8 pg Normal 27.5-35.2 [facility] Comment on above: Performed By: #### C MP, LIPID, CBC, A1C WTH eA #### [address] MCV (RBC) [Entitic vol] 90.6 fL Normal 83.5-101 [facility] Comment on above: Performed By: #### C MP, LIPID, CBC, A1C WTH eA #### [address] Mean Corpuscular HGB Conc 34.0 g/dL Normal 32.5-35.6 [facility] Comment on above: Performed By: #### C MP, LIPID, CBC, A1C WTH eA #### [place] [address] [place] Monocytes (Bld) [#/Vol] 0.5 10*3/uL Normal 0.0-0.8 [facility] Comment on above: Performed By: #### C MP, LIPID, CBC, A1C WTH eA #### [address] Monocytes/100 WBC (Bld) 8.3 % Normal . [facility] Comment on above: Performed By: #### C MP, LIPID, CBC, A1C WTH eA #### [address] Neutrophils (Bld) [#/Vol] 3.4 10*3/uL Normal 1.8-7.7 [facility] Comment on above: Performed By: #### C MP, LIPID, CBC, A1C WTH eA #### [address] Neutrophils/100 WBC (Bld) 58.2 % Normal . [facility] Comment on above: Performed By: #### C MP, LIPID, CBC, A1C WTH eA #### [address] NRBC% 0.1 /100{WBC} Normal 0-0.5 [facility] Comment on above: Performed By: #### C MP, LIPID, CBC, A1C WTH eA #### [address] Platelet mean volume (Bld) [Entitic vol] 8.0 fL Normal 6.6-10.1 [facility] Comment on above: Performed By: #### C MP, LIPID, CBC, A1C WTH eA #### [address] Platelets (Bld) [#/Vol] 250 10*3/uL Normal 150-450 [facility] Comment on above: Performed By: #### C MP, LIPID, CBC, A1C WTH eA #### [address] RBC (Bld) [#/Vol] 5.02 10*6/uL Normal 3.90-5.[address] [facility] Comment on above: Performed By: #### C MP, LIPID, CBC, A1C WTH eA #### [facility] [address] WBC (Bld) [#/Vol] 5.9 10*3/uL Normal 4.1-10.5 [facility] Comment on above: Performed By: #### C MP, LIPID, CBC, A1C WTH eA #### [facility] [address] Comprehensive Metabolic Pane adrienne 02-19-2023 Albumin [Mass/Vol] 4.2 g/dL Normal 3.5-5.7 [facility] Comment on above: Order Comment: PT FA STED 12 HOURS Performed By: #### C MP, LIPID, CBC, A1C WT eA #### [facility] [address] Albumin/Globulin [Mass ratio] 1.6 {ratio} Normal [facility] Comment on above: Order Comment: PT FA STED 12 HOURS Performed By: #### C MP, LIPID, CBC, A1C WTH eA #### [facility] [address] ALP [Catalytic activity/Vol] 68 U/L Normal 34-104 [facility] Comment on above: Order Comment: PT FA STED 12 HOURS Performed By: #### C MP, LIPID, CBC, A1C WTH eA #### [facility] [address] [place] [address] ALT [Catalytic activity/Vol] 18 U/L Normal 7-52 [facility] Comment on above: Order Comment: PT FA STED 12 HOURS Performed By: #### C MP, LIPID, CBC, A1C WTH eA #### [facility] [address] [place] [address] [place] Anion gap [Moles/Vol] 11.9 mmol/L Normal 6.0-15.0 [facility] Comment on above: Order Comment: PT FA STED 12 HOURS Performed By: #### C MP, LIPID, CBC, A1C WTH eA #### [facility] [address] [place] [address] [place] AST [Catalytic activity/Vol] 17 U/L Normal 13-39 [facility] Comment on above: Order Comment: PT FA STED 12 HOURS Performed By: #### C MP, LIPID, CBC, A1C WTH eA #### [facility] [address] Bilirubin [Mass/Vol] 0.6 mg/dL Normal 0.3-1.0 [facility] Comment on above: Order Comment: PT FA STED 12 HOURS Performed By: #### C MP, LIPID, CBC, A1C WTH eA #### [facility] [address] Calcium [Mass/Vol] 9.2 mg/dL Normal 8.6-10.3 [facility] Comment on above: Order Comment: PT FA STED 12 HOURS Performed By: #### C MP, LIPID, CBC, A1C WTH eA #### [facility] [address] [place] [address] Chloride [Moles/Vol] 106 mmol/L Normal 98-107 [facility] Comment on above: Order Comment: PT FA STED 12 HOURS Performed By: #### C MP, LIPID, CBC, A1C WTH eA #### [facility] [address] [place] [address] [place] CO2 [Moles/Vol] 25.4 mmol/L Normal 21.0-31.0 [facility] Comment on above: Order Comment: PT FA STED 12 HOURS Performed By: #### C MP, LIPID, CBC, A1C WTH eA #### [facility] [address] [place] [address] [place] Creatinine [Mass/Vol] 1.04 mg/dL Normal 0.70-1.30 [facility] Comment on above: Order Comment: PT FA STED 12 HOURS Performed By: #### C MP, LIPID, CBC, A1C WTH eA #### [facility] [address] [place] [address] [place] GFR/1.73 sq M.predicted MDRD (S/P/Bld) [Vol rate/Area] mL/min/{1.73_m2} Normal [facility] Comment on above: Order Comment: PT FA STED 12 HOURS Performed By: #### C MP, LIPID, CBC, A1C WTH eA #### [facility] [address] [place] [address] [place] Globulin (S) [Mass/Vol] 2.6 g/dL Normal [facility] Comment on above: Order Comment: PT FA STED 12 HOURS Performed By: #### C MP, LIPID, CBC, A1C WTH eA #### [facility] [address] Glucose [Mass/Vol] 96 mg/dL Normal 74-109 [facility] Comment on above: Order Comment: PT FA STED 12 HOURS Result Comment: [facility] Glucose Reference Range is dependent on time and content of last meal. Glucose of more than 200 mg/dL in a nonstressed, ambulatory subject supports the diagnosis of Diabetes Mellitus. ADA recommended reference range Performed By: #### C MP, LIPID, CBC, A1C WTH eA #### [address] Potassium [Moles/Vol] 4.3 mmol/L Normal 3.5-5.1 [facility] Comment on above: Order Comment: PT FA STED 12 HOURS Performed By: #### C MP, LIPID, CBC, A1C WTH eA #### [place] [address] [place] Protein [Mass/Vol] 6.8 g/dL Normal 6.4-8.9 [facility] Comment on above: Order Comment: PT FA STED 12 HOURS Performed By: #### C MP, LIPID, CBC, A1C WTH eA #### [place] [address] [place] Sodium [Moles/Vol] 139 mmol/L Normal 136-145 [facility] Comment on above: Order Comment: PT FA STED 12 HOURS Performed By: #### C MP, LIPID, CBC, A1C WTH eA #### [address] Urea nitrogen [Mass/Vol] 10 mg/dL Normal 7-25 [facility] Comment on above: Order Comment: PT FA STED 12 HOURS Performed By: #### C MP, LIPID, CBC, A1C WTH eA #### [facility] [address] Creatinine [Mass/volume] in Serum or PlasmaOrdered By: Eusebia Hopper on 02-19-2023 Creatinine [Mass/Vol] 1.04 mg/dL 0.70-1.30 [facility] Eosinophils Auto (Bld) [#/Vo l]Ordered By: Eusebia Bunting on 02-19-2023 Eosinophils (Bld) [#/Vol] 0.1 10*3/uL 0.0-0.45 [facility] Eosinophils/100 WBC Auto (Bl d)Ordered By: Eusebia Bunting on 02-19-2023 Eosinophils/100 WBC (Bld) 1.3 % . [facility] Erythrocyte distribution wid th Auto (RBC) [Ratio]Ordered By: [facility] on 02-19-2023 Erythrocyte distribution width (RBC) [Ratio] 13.2 % 12.0-14.8 [facility] Globulin Calc (S) [Mass/Vol] Ordered By: [facility] on 02-19-2023 Globulin (S) [Mass/Vol] 2.6 g/dL [facility] Glucose [Mass/volume] in Ser um or PlasmaOrdered By: [facility] on 02-19-2023 Glucose [Mass/Vol] 96 mg/dL 74-109 [facility] Comment on above: ADA recommended refe rence rangeRandom Glucose Reference Range is dependent on time and content of last meal. Glucose of more than 200 mg/dL in a nonstressed, ambulatory subject supports the diagnosis of Diabetes Mellitus. Glucose mean value [Mass/vol ume] in Blood Estimated from glycated hemoglobinOrdered By: Eusebia Hopper on 02-19-2023 Average glucose Estimated from glycated hemoglobin (Bld) [Mass/Vol] 120 mg/dL [facility] Hematocrit Auto (Bld) [Volum e fraction]Ordered By: Eusebia Hopper on 02-19-2023 Hematocrit (Bld) [Volume fraction] 45.5 % 38.8-50.0 [facility] Hemoglobin A1c percentageOrd ered By: Eusebia Hopper on 02-19-2023 HbA1c (Bld) [Mass fraction] 5.8 % 4.3-5.6 [facility] Comment on above: Increased risk for d iabetes: 5.7 - 6.4diabetes: >6.4glycemic control for adults with diabetes: <7.0 Hemoglobin [Mass/volume] in BloodOrdered By: Eusebia Hopper on 02-19-2023 Hemoglobin (Bld) [Mass/Vol] 15.4 g/dL 13.0-17.0 [facility] Laboratory - Chemistry and C hemistry - challengeOrdered By: Eusebia Hopper on 02-19-2023 GFR/1.73 sq M.predicted MDRD (S/P/Bld) [Vol rate/Area] mL/min/{1.73_m2} [facility] Leukocytes [#/volume] correc dilip for nucleated erythrocytes in Blood by Automated counOrdered By: Eusebia Hopper on 02-19-2023 WBC corrected for nucl RBC Auto (Bld) [#/Vol] 5.9 10*3/uL 4.1-10.5 [facility] Lipid Panelon 02-19-2023 Cholesterol [Mass/Vol] 194 mg/dL Normal 140-200 [facility] Comment on above: Order Comment: PT FA STED 12 HOURS Result Comment: Chol less than 200 mg/dl low risk Chol 201-239 mg/dl borderline risk Chol 240 mg/dl and greater high risk Performed By: #### C MP, LIPID, CBC, A1C WT eA #### [facility] [address] [place] [id number] [facility] Cholesterol in HDL [Mass/Vol] 38 mg/dL Normal 29-71 [facility] Comment on above: Order Comment: PT FA STED 12 HOURS Result Comment: HDL CHOL ATP-III CLASSIFICATION Cardiovascular Risk HDL > or equal to 60 mg/dL LOW HDL < 40 mg/dL HIGH Performed By: #### C MP, LIPID, CBC, A1C WTH eA #### [facility] [address] [place] [address] [facility] Cholesterol.total/Chol esterol in HDL [Mass ratio] 5.1 {ratio} Normal <5.0 [facility] Comment on above: Order Comment: PT FA STED 12 HOURS Result Comment: PERF ORMED BY: [place] [address] PATHOLOGIST WHEEL AND AXLE INSPECTOR JOLANTA HINDS M.D. Performed By: #### C MP, LIPID, CBC, A1C WTH eA #### [address] LDL Cholesterol,Calculated 122 mg/dL High 0-100 [facility] Comment on above: Order Comment: PT FA STED 12 HOURS Result Comment: LDL ATP III CLASSIFICATION LDL less than 100 mg/dL Optimal LDL 100-129 mg/dL Near or above optimal LDL 130-159 mg/dL Borderline high LDL 160-189 mg/dL High LDL greater than 189 mg/dL Very high Performed By: #### C MP, LIPID, CBC, A1C WTH eA #### [address] Triglyceride w/Reflex 172 mg/dL High 0-149 [facility] Comment on above: Order Comment: PT FA STED 12 HOURS Result Comment: TRIG ATP III CLASSIFICATION TRIG less than 150 mg/dL Normal TRIG 150-199 mg/dL Borderline high TRIG 200-500 mg/dL High TRIG greater than 500 mg/dL Very high Standard traceable to the Center for Disease Conrtrol and Prevention (CDC) test method. Performed By: #### C MP, LIPID, CBC, A1C WTH eA #### [address] VLDL CHOLESTEROL 34 mg/dL Normal [facility] Comment on above: Order Comment: PT FA STED 12 HOURS Performed By: #### C MP, LIPID, CBC, A1C WTH eA #### [place] [address] [place] Lymphocytes Auto (Bld) [#/Vo l]Ordered By: Eusebia Hopper on 02-19-2023 Lymphocytes (Bld) [#/Vol] 1.9 10*3/uL 1.00-4.8 [facility] Lymphocytes/100 WBC Auto (Bl d)Ordered By: Eusebia Hopper on 02-19-2023 Lymphocytes/100 WBC (Bld) 31.8 % . [facility] MCH Auto (RBC) [Entitic mass ]Ordered By: Eusebia Hopper on 02-19-2023 MCH (RBC) [Entitic mass] 30.8 pg 27.5-35.2 [facility] MCHC Auto (RBC) [Mass/Vol]Or dered By: Eusebia Bunting on 02-19-2023 MCHC (RBC) [Mass/Vol] 34.0 g/dL 32.5-35.6 [facility] MCV Auto (RBC) [Entitic vol] Ordered By: Eusebia Bunting on 02-19-2023 MCV (RBC) [Entitic vol] 90.6 fL 83.5-101 [facility] Monocytes Auto (Bld) [#/Vol] Ordered By: Eusebia Bunting on 02-19-2023 Monocytes (Bld) [#/Vol] 0.5 10*3/uL 0.0-0.8 [facility] Monocytes/100 WBC Auto (Bld) Ordered By: Eusebia Bunting on 02-19-2023 Monocytes/100 WBC (Bld) 8.3 % . [facility] Neutrophils Auto (Bld) [#/Vo l]Ordered By: Eusebia Bunting on 02-19-2023 Neutrophils (Bld) [#/Vol] 3.4 10*3/uL 1.8-7.7 [facility] Neutrophils/100 WBC Auto (Bl d)Ordered By: Eusebia Bunting on 02-19-2023 Neutrophils/100 WBC (Bld) 58.2 % . [facility] No Panel InformationOrdered By: Eusebia Bunting on 02-19-2023 Pharmacy Creatinine Clearance (Chem N/A [facility] Nucleated erythrocytes [Pres ence] in Blood by Automated countOrdered By: Eusebia Bunting on 02-19-2023 Nucleated RBC Auto Ql (Bld) 0.1 /100{WBC} 0-0.5 [facility] Platelet mean volume Auto (B ld) [Entitic vol]Ordered By: Eusebia Bunting on 02-19-2023 Platelet mean volume (Bld) [Entitic vol] 8.0 fL 6.6-10.1 [facility] Platelets Auto (Bld) [#/Vol] Ordered By: Eusebia Bunting on 02-19-2023 Platelets (Bld) [#/Vol] 250 10*3/uL 150-450 [facility] Potassium [Moles/volume] in Serum or PlasmaOrdered By: Eusebia Bunting on 02-19-2023 Potassium [Moles/Vol] 4.3 mmol/L 3.5-5.1 [facility] Protein [Mass/volume] in Ser um or PlasmaOrdered By: Eusebia Bunting on 02-19-2023 Protein [Mass/Vol] 6.8 g/dL 6.4-8.9 [facility] RBC Auto (Bld) [#/Vol]Ordere d By: Eusebia Bunting on 02-19-2023 RBC (Bld) [#/Vol] 5.02 10*6/uL 3.90-5.[address] [facility] Serum or plasma albumin/glob ulin mass ratioOrdered By: Eusebia Bunting on 02-19-2023 Albumin/Globulin [Mass ratio] 1.6 {ratio} [facility] Serum or plasma anion gap de terminationOrdered By: Eusebia Bunting on 02-19-2023 Anion gap [Moles/Vol] 11.9 mmol/L 6.0-15.0 [facility] Serum or plasma high density lipoprotein (HDL) cholesterol measurementOrdered By: Eusebia Bunting on 02-19-2023 Cholesterol in HDL [Mass/Vol] 38 mg/dL 29-71 [facility] Comment on above: HDL CHOL ATP-III CLA SSIFICATION Cardiovascular RiskHDL > or equal to 60 mg/dL LOWHDL < 40 mg/dL HIGH Serum or plasma total choles terol/high density lipoprotein (HDL) cholesterol mass ratOrdered By: Eusebia Bunting on 02-19-2023 Cholesterol.total/Chol esterol in HDL [Mass ratio] 5.1 {ratio} <5.0 [facility] Sodium [Moles/volume] in Ser um or PlasmaOrdered By: Eusebia Bunting on 02-19-2023 Sodium [Moles/Vol] 139 mmol/L 136-145 [facility] Triglyceride [Mass/volume] i n Serum or PlasmaOrdered By: Eusebia Bunting on 02-19-2023 Triglyceride [Mass/Vol] 172 mg/dL 0-149 [facility] Comment on above: TRIG ATP III CLASSIF ICATIONTRIG less than 150 mg/dL NormalTRIG 150-199 mg/dL Borderline highTRIG 200-500 mg/dL High TRIG greater than 500 mg/dL Very highStandard traceable to the Center for Disease Conrtrol and Prevention (CDC) test method. Urea nitrogen [Mass/volume] in Serum or PlasmaOrdered By: Eusebia Bunting on 02-19-2023 Urea nitrogen [Mass/Vol] 10 mg/dL 7 [facility] WBC Auto (Bld) [#/Vol]Ordere d By: Eusebia Bunting on 02-19-2023 WBC (Bld) [#/Vol] 5.9 10*3/uL 4.1-10.5 [facility] CBC AUTO DIFFon 08-28-2022 BASO # 0.0 103/ul Normal 0.0-0.1 [facility] Comment on above: Performed By: #### C BC #### [facility] [address] [place] [address] Dr. Feliberto Gu Basophils/100 WBC (Bld) 0.6 % Normal 0.2-2.0 [facility] Comment on above: Performed By: #### C BC #### [facility] [address] [place] [address] Dr. Feliberto Gu EO # 0.1 103/ul Normal 0.0-0.[address] [facility] Comment on above: Performed By: #### C BC #### [facility] [address] [place] [address] Dr. Feliberto Gu Eosinophils/100 WBC (Bld) 0.9 % Normal 0.9-7.0 [facility] Comment on above: Performed By: #### C BC #### [facility] [address] [place] [address] Dr. Feliberto Gu Erythrocyte distribution width (RBC) [Ratio] 12.6 % Normal 11.0-15.0 [facility] Comment on above: Performed By: #### C BC #### [facility] [address] [place] [address] Dr. Feliberto Gu Hematocrit (Bld) [Volume fraction] 43.5 % Normal 42.0-54.0 [facility] Comment on above: Performed By: #### C BC #### [facility] [address] [place] [address] Dr. Feliberto Gu Hemoglobin (Bld) [Mass/Vol] 14.5 g/dL Normal 14.0-18.0 [facility] Comment on above: Performed By: #### C BC #### [facility] [address] [place] [address] Dr. Feliberto Gu IG # 0.02 10e3/ul Normal 0.00-0.03 [facility] Comment on above: Performed By: #### C BC #### [facility] [address] [place] [address] Dr. Feliberto Gu IG % 0.3 % Normal 0.0-0.5 [facility] Comment on above: Performed By: #### C BC #### [facility] [address] [place] [address] Dr. Feliberto Gu LYMPH # 1.9 103/ul Normal 1.2-3.8 [facility] Comment on above: Performed By: #### C BC #### [facility] [address] [place] [address] Dr. Feliberto Gu Lymphocytes/100 WBC (Bld) 27.7 % Normal 20.5-60.0 [facility] Comment on above: Performed By: #### C BC #### [facility] [address] [place] [address] Dr. Feliberto Gu MANUAL DIFF REQ NO Normal [facility] Comment on above: Performed By: #### C BC #### [facility] [address] [place] [address] Dr. Feliberto Gu MCH (RBC) [Entitic mass] 30.1 pg Normal 25.9-34.0 [facility] Comment on above: Performed By: #### C BC #### [facility] [address] [place] [address] Dr. Feliberto Gu MCHC (RBC) [Mass/Vol] 33.3 g/dL Normal 29.9-35.2 [facility] Comment on above: Performed By: #### C BC #### [facility] [address] [address] [address] Feliberto Gu MCV (RBC) [Entitic vol] 90.2 fL Normal 80.0-94.0 [facility] Comment on above: Performed By: #### C BC #### [facility] [address] [address] [address] Feliberto Gu MONO # 0.7 103/ul Normal 0.3-0.8 [facility] Comment on above: Performed By: #### C BC #### [facility] [address] [place] [address] Dr. Feliberto Gu Monocytes/100 WBC (Bld) 9.7 % Normal 1.7-12.0 [facility] Comment on above: Performed By: #### C BC #### [facility] [address] [place] [address] Dr. Feliberto Gu NEUT # 4.2 103/ul Normal 1.4-6.5 [facility] Comment on above: Performed By: #### C BC #### [facility] [address] [place] [address] Dr. Feliberto Gu Neutrophils/100 WBC (Bld) 60.8 % Normal 43.0-75.0 [facility] Comment on above: Performed By: #### C BC #### [facility] [address] [place] [address] Dr. Feliberto Gu Platelet mean volume (Bld) [Entitic vol] 9.5 fL Normal 9.5-13.5 [facility] Comment on above: Performed By: #### C BC #### [facility] [address] [place] [address] Dr. Feliberto Gu PLT 271 103/ul Normal 150-[address] [facility] Comment on above: Performed By: #### C BC #### [facility] [address] [place] [address] Dr. Feliberto Gu RBC 4.82 106/ul Normal 4.70-6.[address] [facility] Comment on above: Performed By: #### C BC #### [facility] [address] [place] [address] Dr. Feliberto Gu WBC 6.9 103/ul Normal 4.0-11.0 [facility] Comment on above: Performed By: #### C BC #### [facility] [address] [place] [address] Dr. Feliberto Gu [facility] SARS-CoV-2 (COVID-19) RNA LIZ+probe Ql (Unsp spec) Not detected Normal NOT DETECTED [facility] Comment on above: Result Comment: This test is not yet approved or cleared by the [place] FDA. When there are no FDA-approved or cleared tests available, and other criteria are met, FDA can make tests available under an emergency access mechanism called an Emergency Use Authorization (EUA). The EUA for this test is supported by the Grant of Health and Human Service's (HHS's) declaration that circumstances exist to justify the emergency use of in vitro diagnostics for the detection and/or diagnosis of the virus that causes COVID-19. This EUA will remain in effect (meaning this test can be used) for the duration of the COVID-19 declaration justifying emergency of IVDs, unless it is terminated or revoked by FDA (after which the test may no longer be used). When diagnostic testing is negative, the possibility of a false negative should be considered in the context of a patient's recent exposures and the presence of clinical signs and symptoms consistent with SARS-CoV-2. Performed By: #### C VDTBH #### [facility] [address] [place] [address] Dr. Feliberto Gu PROF CHEM 8 (BAS METB)on Anion gap [Moles/Vol] 11.4 mmol/L Normal [facility] Comment on above: Performed By: #### B MP #### [facility] [address] [place] [address] Dr. Feliberto Gu Calcium [Mass/Vol] 8.5 mg/dL Normal 8.5-10.1 [facility] Comment on above: Performed By: #### B MP #### [facility] [address] [address] [address] Feliberto Gu Chloride [Moles/Vol] 108 mmol/L Critically high 98-[address] [facility] Comment on above: Performed By: #### B MP #### [facility] [address] [address] [address] Feliberto Gu CO2 [Moles/Vol] 26.4 mmol/L Normal 21.0-32.0 [facility] Comment on above: Performed By: #### B MP #### [facility] [address] [address] [address] Feliberto Gu Creatinine [Mass/Vol] 1.02 mg/dL Normal 0.70-1.[address] [facility] Comment on above: Performed By: #### B MP #### [facility] [address] [place] [address] Dr. Feliberto Gu EGFR-AF BURKINAN >60 Normal >=60 [facility] Comment on above: Performed By: #### B MP #### [facility] [address] [address] [address] Feliberto Gu EGFR-NON AF BURKINAN >60 Normal >=60 [facility] Comment on above: Performed By: #### B MP #### [facility] [address] [place] [address] Dr. Feliberto Gu Glucose [Mass/Vol] 94 mg/dL Normal 74-106 [facility] Comment on above: Performed By: #### B MP #### [facility] [address] [address] [address] Feliberto Gu Potassium [Moles/Vol] 3.8 mmol/L Normal 3.5-5.[address] [facility] Comment on above: Performed By: #### B MP #### [facility] [address] [place] [address] Dr. Feliberto Gu Sodium [Moles/Vol] 142 mmol/L Normal 136-145 [facility] Comment on above: Performed By: #### B MP #### [facility] [address] [place] [address] Dr. Feliberto Gu Urea nitrogen [Mass/Vol] 8.0 mg/dL Normal 7.0-18.0 [facility] Comment on above: Performed By: #### B MP #### [facility] [address] [place] [address] Dr. Feliberto Gu Urea nitrogen/Creatinine [Mass ratio] 7.8 mg/mg Normal [facility] Comment on above: Performed By: #### B MP #### [facility] [address] [place] [address] Dr. Feliberto Gu PROTIMEon 08-28-2022 INR Coag (PPP) [Relative time] 0.99 {INR} Normal [facility] Comment on above: Performed By: #### P TT, PT #### [facility] [address] [place] [address] Dr. Feliberto Gu INR GUIDELINES SEE BELOW Normal [facility] Comment on above: Result Comment: JEFF RED INR: 2.0 - 3.0 CONDITIONS NOT LISTED BELOW 2.5 - 3.5 FOR PROSTHETIC HEART VALVE REPLACEMENT 2.5 - 3.5 RECURRENT THROMBOSIS Performed By: #### P TT, PT #### [facility] [address] [place] [address] Dr. Feliberto Gu PT Coag (PPP) [Time] 10.7 s Normal 9.0-11.6 [facility] Comment on above: Performed By: #### P TT, PT #### [facility] [address] [place] [address] Dr. Feliberto Gu PTTon 08-28-2022 aPTT Coag (Bld) [Time] 28.2 s Normal 22.3-36.2 [facility] Comment on above: Performed By: #### P TT, PT #### [facility] [address] [place] [address] Dr. Feliberto Gu BLOOD BANKOrdered By: Angelique merida on 06-20-2022 ABO/Rh Interp Positive Invalid Interpretation Code [facility] BB Subsection ABSC Gel Interp Negative (06/20/22 6:50 AM) Normal [facility] BB Subsection Creatinine (Bld) [Mass/Vol]O rdered By: Emmanuel Faulkner on 06-08-2022 Creatinine [Mass/Vol] 1.1 mg/dL 0.6-1.3 [facility] Comment on above: ER/ESD physician is notified/shown all ISTAT results. Critical values may be confirmed by laboratory testing if deemed necessary by ER attending doctor. No Panel InformationOrdered By: Emmanuel Faulkner on 06-08-2022 POC Estimated GFR > 60 [facility] Comment on above: GFR estimated refere nce range: According to KDOQI guidelines, <60 ml/min/1.73m2 is sufficient to diagnose a patient with chronic kidney disease. POC Estimated GFR Non- Amer > 60 [facility] CHEMISTRYOrdered By: SYSTEM SYSTEM on 06-05-2022 Anion gap [Moles/Vol] 12 mmol/L Normal 6 - 16 mEq/L [facility] Remisol Chloride [Moles/Vol] 103 mmol/L Normal 101 - 1 11 mmol/L [facility] Remisol CO2 [Moles/Vol] 25 mmol/L Normal 21 - 31 mmol/L [facility] Remisol Creatinine [Mass/Vol] 1.1 mg/dL Normal 0.5 - 1.3 mg/dL [facility] Remisol GFR/1.73 sq M.predicted among blacks MDRD (S/P/Bld) [Vol rate/Area] mL/min/1.73 m2 Normal >=59mL/min/1.7 3 m2 [facility] Chem S GFR/1.73 sq M.predicted among non-blacks MDRD (S/P/Bld) [Vol rate/Area] mL/min/1.73 m2 Normal >=59mL/min/1.7 3 m2 [facility] Chem S Glucose [Mass/Vol] 85 mg/dL Normal 55 - 199 mg/dL [facility] Remisol Potassium [Moles/Vol] 4.6 mmol/L Normal 3.5 - 5.3 mmol/L [facility] Remisol Sodium [Moles/Vol] 135 mmol/L Normal 135 - 145 mmol/L [facility] Remisol Urea nitrogen [Mass/Vol] 15 mg/dL Normal 5 - 21 mg/dL [facility] Remisol HEMATOLOGYOrdered By: Elena Rock on 06-05-2022 Erythrocyte distribution width (RBC) [Ratio] 14.0 % Normal 10.9 - 14.2 % [facility] Hematocrit (Bld) [Volume fraction] 45.4 % Normal 37.7 - 49.0 % [facility] Hemoglobin (Bld) [Mass/Vol] 15.1 g/dL Normal 13.5 - 17.5 gm/dL [facility] MCH (RBC) [Entitic mass] 29.5 pg Normal 27.0 - 34.0 pg [facility] MCHC (RBC) [Mass/Vol] 33.2 g/dL Normal 31.4 - 36.0 gm/dL [facility] MCV (RBC) [Entitic vol] 88.8 fL Normal 80.0 - 100.0 fL [facility] Platelet mean volume (Bld) [Entitic vol] 8.2 fL Normal 6.4 - 10.8 fL [facility] Platelets (Bld) [#/Vol] 227.0 E9/L Normal 150.0 - 500.0 E9/L [facility] RBC (Bld) [#/Vol] 5.1 E12/L Normal 4.3 - 5.9 E12/L [facility] WBC corrected for nucl RBC Auto (Bld) [#/Vol] 5.4 E9/L Normal 4.0 - 11.0 E9/L [facility] URINALYSISOrdered By: Tyra lee on 06-05-2022 Bacteria LM Ql (Urine sed) Trace /HPF Normal Trace/HPF [facility] UA Auto SS Bilirubin Ql (U) Negative (06/05/22 3:09 PM) Normal Negative [facility] UA Auto SS Clarity (U) Clear (06/05/22 3:09 PM) Normal Clear [facility] UA Auto SS Color (U) Yellow (06/05/22 3:09 PM) Normal Yellow [facility] UA Auto SS Epithelial cells.squamous LM.HPF (Urine sed) [#/Area] 0-2 /HPF Normal 0-2/HPF [facility] UA Aut o SS Glucose Test strip (U) [Mass/Vol] Negative (06/05/22 3:09 PM) Normal Negative [facility] UA Auto SS Hemoglobin Ql (U) Trace *ABN* (06/05/22 3:09 PM) Invalid Interpretation Code Negative [facility] UA Auto SS Ketones (U) [Mass/Vol] Negative (06/05/22 3:09 PM) Normal Negative [facility] UA Auto SS [place].plasma/[place] .RBC (Bld) [Mass ratio] 0-3 /HPF Normal 0-3/HPF [facility] UA Auto SS Mucus Ql (Urine sed) 1+ (06/05/22 3:09 PM) Normal [facility] UA Auto SS Nitrite Ql (U) Negative (06/05/22 3:09 PM) Normal Negative [facility] UA Auto SS pH (U) 6.0 *NA* (06/05/22 3:09 PM) Invalid Interpretation Code 5.0 - 9.0 [facility] UA Auto SS Protein (U) [Mass/Vol] Negative (06/05/22 3:09 PM) Normal Negative [facility] UA Auto SS Specific gravity (U) [Rel density] 1.025 *NA* (06/05/22 3:09 PM) Invalid Interpretation Code 1.005 - 1.030 [facility] UA Auto SS UA Spec Desc Clean Catch (06/05/22 3:09 PM) Normal [facility] UA Auto SS Urobilinogen Qn (U) [id number] {Vesta'U}/dL Normal 0.0 - 1.0 EU/dL [facility] UA Auto SS WBC Auto Ql (U) Negative (06/05/22 3:09 PM) Normal Negative [facility] UA Auto SS WBC LM.HPF (Urine sed) [#/Area] 0-5 /HPF Normal 0-5/HPF [facility] UA Auto SS Vital Signs Date Time Vital Sign Value Performing Clinician Facility 09-18-2023 10:27-0400 Blood Pressure Location Emmanuel [facility]ULKNER [facility] 09-18-2023 10:27-0400 Diastolic blood pressure 86 mm[Hg] Emmanuel FAULKNER [facility] 09-18-2023 10:27-0400 Heart rate 73 /min Emmanuel FAULKNER [facility] 09-18-2023 10:27-0400 Systolic blood pressure 140 mm[Hg] Emmanuel FAULKNER [facility] 06-20-2022 14:00-0400 Diastolic blood pressure 74 mm[Hg] Prince Santillan [facility] 06-20-2022 14:00-0400 Systolic blood pressure 126 mm[Hg] Prince Santillan [facility] 06-20-2022 12:30-0400 Blood Pressure Location Prince Santillan [facility] 06-20-2022 12:30-0400 Body temperature 96.8 [degF] Prince Santillan [facility] 06-20-2022 12:30-0400 Diastolic blood pressure 75 mm[Hg] Prince Santillan [facility] 06-20-2022 12:30-0400 Heart rate 85 /min Prince Santillan [facility] 06-20-2022 12:30-0400 Respiratory rate 20 /min Prince Santillan [facility] 06-20-2022 12:30-0400 SaO2% (BldA) [Mass fraction] 96 % Prince Santillan [facility] 06-20-2022 12:30-0400 Systolic blood pressure 116 mm[Hg] Prince Santillan [facility] 06-20-2022 11:35-0400 Body temperature 96.44 [degF] Prince Santillan [facility] 06-20-2022 11:35-0400 Diastolic blood pressure 67 mm[Hg] Prince Santillan [facility] 06-20-2022 11:35-0400 Heart rate 82 /min Prince Santillan [facility] 06-20-2022 11:35-0400 Systolic blood pressure 106 mm[Hg] Princekrissy Santillan [facility] 06-20-2022 10:37-0400 Mean blood pressure 83 mm[Hg] Prince Brown [facility] 06-20-2022 10:37-0400 Body temperature 96.98 [degF] Prince Brown [facility] 06-20-2022 10:37-0400 Respiratory rate 16 /min Prince Brown [facility] 06-20-2022 10:15-0400 Body temperature 97.16 [degF] Prince Brown [facility] 06-20-2022 10:15-0400 Respiratory rate 18 /min Prince Brown [facility] 06-20-2022 10:10-0400 Respiratory rate 18 /min Prince Brown [facility] 06-20-2022 10:05-0400 Respiratory rate 18 /min Prince Brown [facility] 06-20-2022 06:26-0400 Mean blood pressure 97 mm[Hg] Prince Brown [facility] 06-20-2022 06:26-0400 Heart rate 80 /min Prince Brown [facility] 06-20-2022 06:25-0400 Body temperature 97.88 [degF] Prince Brown [facility] 06-20-2022 06:25-0400 Mean blood pressure 105 mm[Hg] Prince Brown [facility] 06-05-2022 14:39-0400 Diastolic blood pressure 70 mm[Hg] Prince Brown [facility] 06-05-2022 14:39-0400 Heart rate 84 /min Prince Brown [facility] 06-05-2022 14:39-0400 Mean blood pressure 80 mm[Hg] Prince Santillan [facility] 06-05-2022 14:39-0400 SaO2% (BldA) [Mass fraction] 97 % Prince Santillan [facility] 06-05-2022 14:39-0400 Systolic blood pressure 101 mm[Hg] Prince Santillan [facility] 06-05-2022 14:39-0400 Blood Pressure Location Prince Santillan [facility] 06-05-2022 14:38-0400 Blood Pressure Location Prince Santillan [facility] 06-05-2022 14:38-0400 BP/Pulse Patient Position Prince Santillan [facility] 06-05-2022 14:38-0400 Diastolic blood pressure 77 mm[Hg] Prince Santilaln [facility] 06-05-2022 14:38-0400 Heart rate 86 /min Prince Santillan [facility] 06-05-2022 14:38-0400 Mean blood pressure 90 mm[Hg] Prince Santillan [facility] 06-05-2022 14:38-0400 Respiratory rate 18 /min Prince Santillan [facility] 06-05-2022 14:38-0400 SaO2% (BldA) [Mass fraction] 98 % Prince Santillan [facility] 06-05-2022 14:38-0400 Systolic blood pressure 116 mm[Hg] Prince Santillan [facility] 06-05-2022 14:38-0400 Body temperature 98.24 [degF] Prince Santillan [facility] 05-16-2022 10:48-0400 Blood Pressure Location Emmanuel FAULKNER [facility] [place] 05-16-2022 10:48-0400 Diastolic blood pressure 105 mm[Hg] Emmanuel FAULKNER [facility] [place] 05-16-2022 10:48-0400 Heart rate 83 /min Emmanuel FAULKNER [facility] [place] 05-16-2022 10:48-0400 Systolic blood pressure 165 mm[Hg] Emmanuel FAULKNER [facility] [place] 04-04-2022 09:26-0400 Blood Pressure Location Emmanule FAULKNER [facility] [place] 04-04-2022 09:26-0400 Diastolic blood pressure 88 mm[Hg] Emmanuel FAULKNER [facility] [place] 04-04-2022 09:26-0400 Heart rate 73 /min Emmanuel FAULKNER [facility] [place] 04-04-2022 09:26-0400 Systolic blood pressure 150 mm[Hg] Emmanuel FAULKNER [facility] Encounters Encounter Date Encounter Type Care Provider Facility Start: 12-05-2023 End: 12-06-2023 ambulatory AIDA BRYAN Facility:[facility] Start: 12-05-2023 End: 12-05-2023 Lab Drop off AIDA BRYAN [facility] Start: 12-05-2023 End: 12-06-2023 ambulatory AIDA BRYAN Facility:[facility] [place] Start: 12-05-2023 End: 12-05-2023 Patient encounter procedure AIDA BRYAN [facility] Start: 11-05-2023 End: 11-06-2023 ambulatory Emmanuel FAULKNER Facility:[facility] Start: 11-05-2023 End: 11-05-2023 Patient encounter procedure Emmanuel FAULKNER [facility] Start: 09-18-2023 End: 09-19-2023 ambulatory Emmanuel Ramila FAULKNER Facility: [place] Start: 09-18-2023 End: 09-18-2023 Patient encounter procedure Emmanuelhenna FAULKNER [facility] [place] Start: 09-12-2023 End: 09-12-2023 ambulatory Emmanuel Faulkner Facility:[facility] Start: 02-19-2023 End: 02-19-2023 ambulatory Eusebia Bunting Facility:[facility] Start: 02-19-2023 End: 02-19-2023 ambulatory DO Eusebia Bunting Work Phone: [facility] Work Phone: Start: 02-19-2023 End: 02-19-2023 Patient encounter procedure DO Eusebia Bunting Work Phone: [facility] [place] Work Phone: Start: 09-12-2022 End: 09-12-2022 Patient encounter procedure Emmanuel R FAULKNER [facility] Start: 08-30-2022 Encounter for preprocedural cardiovascular examination DR EMMANUEL FAULKNER [facility] Start: 08-30-2022 Encounter for preprocedural laboratory examination DR EMMANUEL FAULKNER [facility] Start: 08-30-2022 Encounter for preprocedural respiratory examination DR EMMANUEL FAULKNER [facility] Start: 08-30-2022 End: 08-30-[address] EMMANUEL FAULKNER Facility:[facility] Start: 08-28-2022 End: 08-29-[address] EMMANUEL FAULKNER Facility:[facility] Start: 08-28-2022 End: 08-29-2022 Encounter for preprocedural laboratory examination DR EMMANUEL FAULKNER Facility:[facility] Start: 08-14-2022 End: 08-29-2022 Pre-admission assessment Emmanuel FAULKNER [facility] Start: 06-20-2022 End: 06-20-2022 Admission to same day surgery center Prince Santillan [facility] Start: 06-08-2022 End: 06-08-2022 Patient encounter procedure Eusebia Hopper Work Phone: [facility] Start: 06-05-2022 End: 06-05-2022 Patient encounter procedure Prince Santillan [facility] Start: 05-16-2022 End: 05-16-2022 Lab Drop off Emmanuel FAULKNER [facility] Start: 05-16-2022 End: 05-16-2022 Patient encounter procedure Emmanuel FAULKNER [facility] Start: 04-04-2022 End: 04-04-2022 Patient encounter procedure Emmanuel FAULKNER [facility] Procedures Date Procedure Procedure Detail Performing Clinician Start: 08-30-2022 Transperineal needle biopsy of prostate Emmanuelhenna FAULKNER Start: 06-20-2022 Arthroplasty Prince young Comment on above: Left Total Knee Arth roplasty ,Robotic Assisted Start: 06-08-2022 MR prostate wo/w con DO Eusebia Hopper Work Phone: Start: 01-31-2022 Total knee replacement Emmanuel FAULKNER Arthroplasty of knee Emmanuelhenna FAULKNER Colonoscopy Emmanuelhenna FAULKNER Colonoscopy Emmanuelhenna FAULKNER Polyp (disorder) Emmanuel LYNDSEY WONG Plan of Treatment Date Care Activity Detail Author Start: 01-13-2024 ambulatory Ambulatory Facility:[facility] Start: 12-30-2023 ambulatory Ambulatory Facility:[facility] Start: 12-26-2023 ambulatory Ambulatory Facility:[facility] D:[id number] Immunizations Immunization Date Immunization Notes Care Provider [facility] 11-06-2023 influenza virus vacc ine, unspecified formulation AIDA IRVIN [facility] 10-22-2022 influenza virus vacc ine, unspecified formulation Emmanuelhenna FAULKNER [facility] 10-22-2022 SARS-CoV-2 (COVID-19 ) [id number] Emmanuel FAULKNER [facility] 05-17-2022 SARS-CoV-2 mRNA (lxezwerfezg-[id number]-opjroo e) vaccine Emmanuelhenna FAULKNER [facility] 10-01-2021 influenza virus vacc ine, unspecified formulation Emmanuelhenna FAULKNER [facility] 10-01-2021 SARS-CoV-2 (COVID-19 ) mRNA BNT-162b2 vax Emmanuel FAULKNER [facility] Comment on above: Result Comment: [facility] 05-20-2021 pneumococcal polysaccharide vaccine, 23 valent Emmanuel FAULKNER [facility] 04-09-2021 SARS-CoV-2 (COVID-19 ) Ad26 vaccine, recombinant [employer] [facility] 02-07-2021 SARS-CoV-2 (COVID-19 ) Ad26 vaccine, recombinant [employer] [facility] 04-18-2020 zoster vaccine recombinant [employer] [facility] 01-04-2020 pneumococcal conjuga te vaccine, 13 valent Emmanuel [employer] [facility] 01-04-2020 tetanus toxoid, redu beatriz diphtheria toxoid, and acellular pertussis vaccine, adsorbed [employer] [facility] 01-04-2020 zoster vaccine recombinant [employer] [facility] Payers Date Payer Category Payer Self-pay [id number] 2023 [facility] [id number] 1959 Medicare [id number] 1959 Unknown [id number] 1954 Unknown [id number] 2.16.84 [id number] 1954 Unknown [id number] 2.16.84 [id number] 1954 Unknown [id number] 2.16.8 [id number] 1954 Unknown [id number] 2.16.8 [id number] 1954 Unknown [id number] 2.16.8 [id number] 1954 Unknown [id number] 2.16.8 [id number] 1954 Unknown [id number] 2.16.8 [id number] 1954 Unknown [id number] 2.16.8 [id number] Unknown [facility] [id number] Unknown [id number] 2.16.8 [id number] Unknown [id number] 2.16.8 [id number] Social History Date Type Detail Facility Start: 04-04-2022 End: 12-05-2023 Tobacco smoking status Never smoked tobacco (finding) [facility] Tobacco smoking status Never [facility] Sex Assigned At Male [facility] Start: 1955 Sex Assigned At Male [facility] Medical Equipment Procedure Code Equipment Code Equipment Origin al Text Equipment Identifier Dates FDA Start: 01-31-2022 FDA Start: 01-31-2022 FDA Start: 01-31-2022 FDA Start: 01-31-2022 KNEE TOTAL ROBOT ARTHROPLASTY Tyrell DO, Prince A 01/31/22 Unknown Knee R FDA Start: 01-31-2022 KNEE TOTAL ROBOT ARTHROPLASTY Tyrell DO, Prince A 01/31/22 Unknown Knee R FDA Start: 01-31-2022 KNEE TOTAL ROBOT ARTHROPLASTY Tyrell DO, Prince A 01/31/22 Unknown Knee R FDA Start: 01-31-2022 KNEE TOTAL ROBOT ARTHROPLASTY Brown DO, Prince A 01/31/22 Unknown Knee R FDA Start: 01-31-2022 KNEE TOTAL ROBOT ARTHROPLASTY Tyrell DO, Prince A 01/31/22 Unknown Knee R FDA Start: 01-31-2022 KNEE TOTAL ROBOT ARTHROPLASTY Tyrell DO, Prince A 01/31/22 Unknown Knee R FDA Start: 01-31-2022 KNEE TOTAL ROBOT ARTHROPLASTY Tyrell DO, Prince A 01/31/22 Unknown Knee R FDA Start: 01-31-2022 KNEE TOTAL ROBOT ARTHROPLASTY Brown DO, Prince A 01/31/22 Unknown Knee R FDA Start: 01-31-2022 KNEE TOTAL ROBOT ARTHROPLASTY Brown DO, Prince A 01/31/22 Unknown Knee R FDA Start: 01-31-2022 KNEE TOTAL ROBOT ARTHROPLASTY Brown DO, Prince A 01/31/22 Unknown Knee R FDA Start: 01-31-2022 KNEE TOTAL ROBOT ARTHROPLASTY Brown DO, Prince A 01/31/22 Unknown Knee R FDA Start: 01-31-2022 KNEE TOTAL ROBOT ARTHROPLASTY Brown DO, Prince A 01/31/22 Unknown Knee R FDA Start: 01-31-2022 KNEE TOTAL ROBOT ARTHROPLASTY Brown DO, Prince A 01/31/22 Unknown Knee R FDA Start: 01-31-2022 KNEE TOTAL ROBOT ARTHROPLASTY Brown DO, Prince A 01/31/22 Unknown Knee R FDA Start: 01-31-2022 KNEE TOTAL ROBOT ARTHROPLASTY Brown DO, Prince A 01/31/22 Unknown Knee R FDA Start: 01-31-2022 KNEE TOTAL ROBOT ARTHROPLASTY Brown DO, Prince A 01/31/22 Unknown Knee R FDA Start: 01-31-2022 KNEE TOTAL ROBOT ARTHROPLASTY Brown DO, Prince A 06/20/22 Unknown Knee L FDA Start: 06-20-2022 KNEE TOTAL ROBOT ARTHROPLASTY Tyrell DO, Prince A 06/20/22 Unknown Knee L FDA Start: 06-20-2022 KNEE TOTAL ROBOT ARTHROPLASTY Tyrell DO, Prince A 06/20/22 Unknown Knee L FDA Start: 06-20-2022 KNEE TOTAL ROBOT ARTHROPLASTY Tyrell DO, Prince A 06/20/22 Unknown Knee L FDA Start: 06-20-2022 KNEE TOTAL ROBOT ARTHROPLASTY Tyrell DO, Prince A 01/31/22 Unknown Knee R FDA Start: 01-31-2022 KNEE TOTAL ROBOT ARTHROPLASTY Tyrell DO, Prince A 01/31/22 Unknown Knee R FDA Start: 01-31-2022 KNEE TOTAL ROBOT ARTHROPLASTY Tyrell DO, Prince A 01/31/22 Unknown Knee R FDA Start: 01-31-2022 KNEE TOTAL ROBOT ARTHROPLASTY Tyrell DO, Prince A 01/31/22 Unknown Knee R FDA Start: 01-31-2022 KNEE TOTAL ROBOT ARTHROPLASTY Tyrell DO, Prince A 06/20/22 Unknown Knee L FDA Start: 06-20-2022 KNEE TOTAL ROBOT ARTHROPLASTY Tyrell DO, Prince A 06/20/22 Unknown Knee L FDA Start: 06-20-2022 KNEE TOTAL ROBOT ARTHROPLASTY Tyrell DO, Prince A 06/20/22 Unknown Knee L FDA Start: 06-20-2022 KNEE TOTAL ROBOT ARTHROPLASTY Tyrell DO, Prince A 06/20/22 Unknown Knee L FDA Start: 06-20-2022 KNEE TOTAL ROBOT ARTHROPLASTY Tyrell DO, Prince A 01/31/22 Unknown Knee R FDA Start: 01-31-2022 KNEE TOTAL ROBOT ARTHROPLASTY Tyrell DO, Prince A 01/31/22 Unknown Knee R FDA Start: 01-31-2022 KNEE TOTAL ROBOT ARTHROPLASTY Brown DO, Prince A 01/31/22 Unknown Knee R FDA Start: 01-31-2022 KNEE TOTAL ROBOT ARTHROPLASTY Tyrell DO, Prince A 01/31/22 Unknown Knee R FDA Start: 01-31-2022 KNEE TOTAL ROBOT ARTHROPLASTY Tyrell DO, Prince A 06/20/22 Unknown Knee L FDA Start: 06-20-2022 KNEE TOTAL ROBOT ARTHROPLASTY Tyrell DO, Prince A 06/20/22 Unknown Knee L FDA Start: 06-20-2022 KNEE TOTAL ROBOT ARTHROPLASTY Tyrell DO, Prince A 06/20/22 Unknown Knee L FDA Start: 06-20-2022 KNEE TOTAL ROBOT ARTHROPLASTY Brown DO, Prince A 06/20/22 Unknown Knee L FDA Start: 06-20-2022 KNEE TOTAL ROBOT ARTHROPLASTY Tyrell DO, Prince A 01/31/22 Unknown Knee R FDA Start: 01-31-2022 KNEE TOTAL ROBOT ARTHROPLASTY Tyrell DO, Prince A 01/31/22 Unknown Knee R FDA Start: 01-31-2022 KNEE TOTAL ROBOT ARTHROPLASTY Tyrell DO, Prince A 01/31/22 Unknown Knee R FDA Start: 01-31-2022 KNEE TOTAL ROBOT ARTHROPLASTY Tyrell DO, Prince A 01/31/22 Unknown Knee R FDA Start: 01-31-2022 KNEE TOTAL ROBOT ARTHROPLASTY Tyrell DO, Prince A 06/20/22 Unknown Knee L FDA Start: 06-20-2022 KNEE TOTAL ROBOT ARTHROPLASTY Tyrell DO, Prince A 06/20/22 Unknown Knee L FDA Start: 06-20-2022 KNEE TOTAL ROBOT ARTHROPLASTY Tyrell DO, Prince A 06/20/22 Unknown Knee L FDA Start: 06-20-2022 KNEE TOTAL ROBOT ARTHROPLASTY Tyrell DO, Prince A 06/20/22 Unknown Knee L FDA Start: 06-20-2022 KNEE TOTAL ROBOT ARTHROPLASTY Tyrell DO, Prince A 01/31/22 Unknown Knee R FDA Start: 01-31-2022 KNEE TOTAL ROBOT ARTHROPLASTY Tyrell DO, Prince A 01/31/22 Unknown Knee R FDA Start: 01-31-2022 KNEE TOTAL ROBOT ARTHROPLASTY Tyrell DO, Prince A 01/31/22 Unknown Knee R FDA Start: 01-31-2022 KNEE TOTAL ROBOT ARTHROPLASTY Tyrell DO, Prince A 01/31/22 Unknown Knee R FDA Start: 01-31-2022 KNEE TOTAL ROBOT ARTHROPLASTY Tyrell DO, Prince A 06/20/22 Unknown Knee L FDA Start: 06-20-2022 KNEE TOTAL ROBOT ARTHROPLASTY Tyrell DO, Prince A 06/20/22 Unknown Knee L FDA Start: 06-20-2022 KNEE TOTAL ROBOT ARTHROPLASTY Tyrell DO, Prince A 06/20/22 Unknown Knee L FDA Start: 06-20-2022 KNEE TOTAL ROBOT ARTHROPLASTY Tyrell DO, Prinec A 06/20/22 Unknown Knee L FDA Start: 06-20-2022 KNEE TOTAL ROBOT ARTHROPLASTY Tyrell DO, Prince A 01/31/22 Unknown Knee R FDA Start: 01-31-2022 KNEE TOTAL ROBOT ARTHROPLASTY Tyrell DO, Prince A 01/31/22 Unknown Knee R FDA Start: 01-31-2022 KNEE TOTAL ROBOT ARTHROPLASTY Tyrell DO, Prince A 01/31/22 Unknown Knee R FDA Start: 01-31-2022 KNEE TOTAL ROBOT ARTHROPLASTY Tyrell DO, Prince A 01/31/22 Unknown Knee R FDA Start: 01-31-2022 KNEE TOTAL ROBOT ARTHROPLASTY Tyrell DO, Prince A 06/20/22 Unknown Knee L FDA Start: 06-20-2022 KNEE TOTAL ROBOT ARTHROPLASTY Tyrell DO, Prince A 06/20/22 Unknown Knee L FDA Start: 06-20-2022 KNEE TOTAL ROBOT ARTHROPLASTY Brown DO, Prince A 06/20/22 Unknown Knee L FDA Start: 06-20-2022 KNEE TOTAL ROBOT ARTHROPLASTY Tyrell DO, Prince A 06/20/22 Unknown Knee L FDA Start: 06-20-2022 KNEE TOTAL ROBOT ARTHROPLASTY Tyrell DO, Prince A 01/31/22 Unknown Knee R FDA Start: 01-31-2022 KNEE TOTAL ROBOT ARTHROPLASTY Tyrell DO, Prince A 01/31/22 Unknown Knee R FDA Start: 01-31-2022 KNEE TOTAL ROBOT ARTHROPLASTY Tyrell DO, Prince A 01/31/22 Unknown Knee R FDA Start: 01-31-2022 KNEE TOTAL ROBOT ARTHROPLASTY Tyrell DO, Prince A 01/31/22 Unknown Knee R FDA Start: 01-31-2022 KNEE TOTAL ROBOT ARTHROPLASTY Tyrell DO, Prince A 06/20/22 Unknown Knee L FDA Start: 06-20-2022 KNEE TOTAL ROBOT ARTHROPLASTY Tyrell DO, Prince A 06/20/22 Unknown Knee L FDA Start: 06-20-2022 KNEE TOTAL ROBOT ARTHROPLASTY Tyrell DO, Prince A 06/20/22 Unknown Knee L FDA Start: 06-20-2022 KNEE TOTAL ROBOT ARTHROPLASTY Tyrell DO, Prince A 06/20/22 Unknown Knee L FDA Start: 06-20-2022 Functional Status Date Assessment Result Facility 12-05-2023 Functional Status N/A [facility] 11-05-2023 Functional Status N/A [facility] 09-18-2023 Functional Status N/A [facility] 09-12-2022 Functional Status N/A [facility] 06-05-2022 Functional Status N/A [facility] 05-16-2022 Functional Status N/A [facility] [place] Clinical Notes 04-04-2022 to 12-05-2023 Note Date & Type Note Facility 12-05-2023 Hospital Discharge instructions Patient Education 12/05/2023 12:44:29 Flank Pain, Adult Flank Pain, Adult Flank pain is pain that is located on the side of the body between the upper abdomen and the spine. This area is called the flank. The pain may occur over a short period of time (acute), or it may be long-term or recurring (chronic). It may be mild or severe. Flank pain can be caused by many things, including: Muscle soreness or injury. Kidney infection, kidney stones, or kidney disease. Stress. A disease of the spine (vertebral disk disease). A lung infection (pneumonia). Fluid around the lungs (pulmonary edema). A skin rash caused by the chickenpox virus (shingles). Tumors that affect the back of the abdomen. Gallbladder disease. Follow these instructions at home: Drink enough fluid to keep your urine pale yellow. Rest as told by your health care provider. Take gaxx-gtt-wcdkqne and prescription medicines only as told by your health care provider. Keep a journal to track what has caused your flank pain and what has made it feel better. Keep all follow-up visits. This is important. Contact a health care provider if: Your pain is not controlled with medicine. You have new symptoms. Your pain gets worse. Your symptoms last longer than 2 3 days. You have trouble urinating or you are urinating very frequently. Get help right away if: You have trouble breathing or you are short of breath. Your abdomen hurts or it is swollen or red. You have nausea or vomiting. You feel faint, or you faint. You have blood in your urine. You have flank pain and a fever. These symptoms may represent a serious problem that is an emergency. Do not wait to see if the symptoms will go away. Get medical help right away. Call your local emergency services (911 in the [place] Do not drive yourself to the hospital. Summary Flank pain is pain that is located on the side of the body between the upper abdomen and the spine. The pain may occur over a short period of time (acute), or it may be long-term or recurring (chronic). It may be mild or severe. Flank pain can be caused by many things. Contact your health care provider if your symptoms get worse or last longer than 2 3 days. This information is not intended to replace advice given to you by your health care provider. Make sure you discuss any questions you have with your health care provider. Document Revised: 01/29/2022 Document Reviewed: 01/29/2022 [employer] Patient Education 2022 [employer]. Follow Up Care 12/04/2023 15:31:16 With:AIDA BRYAN PA-C, URL Address: [address] [place] [address] [phone] When: Unknown Comments:has TURP scheduled 12/26/23 [facility] [place] 11-05-2023 Note [id number] [facility] 11-05-2023 Hospital Discharge instructions Patient Education 11/05/2023 14:19:31 Transurethral Resection of the Prostate Transurethral Resection of the Prostate Transurethral resection of the prostate (TURP) is the removal, or resection, of part of the prostate tissue. This procedure is done to treat an enlarged prostate gland (benign prostatic hyperplasia). The goal of TURP is to remove enough prostate tissue to allow for a normal flow of urine. The procedure will allow you to empty your bladder more completely when you urinate so that you can urinate less often. In a transurethral resection, a thin telescope with a light, a camera, and an electric cutting edge (resectoscope) is passed through the urethra and into the prostate. The opening of the urethra is at the end of the penis. Tell a health care provider about: Any allergies you have. All medicines you are taking, including vitamins, herbs, eye drops, creams, and onox-xoe-jdusvsx medicines. Any problems you or family members have had with anesthetic medicines. Any bleeding problems you have. Any surgeries you have had. Any medical conditions you have. Any prostate infections you have had. What are the risks? Generally, this is a safe procedure. However, problems may occur, including: Infection. Bleeding. Allergic reactions to medicines. Blood in the urine (hematuria). Damage to nearby structures or organs. Other problems may occur, but they are rare. They include: Dry ejaculation, or having no semen come out during orgasm. Erectile dysfunction, or being unable to have or keep an erection. Scarring that leads to narrowing of the urethra. This narrowing may block the flow of urine. Inability to control when you urinate (incontinence). Deep vein thrombosis. This is a blood clot that can develop in your leg. TURP syndrome. This can happen when you lose too much sodium during or after the procedure. Some signs and symptoms of this condition include: ?Weakness. ?Headaches. ?Nausea or vomiting. ?Muscle cramping. What happens before the procedure? When to stop eating and drinking Follow instructions from your health care provider about what you may eat and drink before your procedure. These may include: 8 hours before your procedure ?Stop eating most foods. Do not eat meat, fried foods, or fatty foods. ?Eat only light foods, such as toast or crackers. ?All liquids are okay except energy drinks and alcohol. 6 hours before your procedure ?Stop eating. ?Drink only clear liquids, such as water, clear fruit juice, black coffee, plain tea, and sports drinks. ?Do not drink energy drinks or alcohol. 2 hours before your procedure ?Stop drinking all liquids. ?You may be allowed to take medicines with small sips of water. If you do not follow your health care provider's instructions, your procedure may be delayed or canceled. Medicines Ask your health care provider about: Changing or stopping your regular medicines. This is especially important if you are taking diabetes medicines or blood thinners. Taking medicines such as aspirin and ibuprofen. These medicines can thin your blood. Do not take these medicines unless your health care provider tells you to take them. Taking sscv-mqj-owwwhrg medicines, vitamins, herbs, and supplements. Surgery safety Ask your health care provider what steps will be taken to help prevent infection. These steps may include: Removing hair at the surgery site. Washing skin with a germ-killing soap. Taking antibiotic medicine. General instructions Do not use any products that contain nicotine or tobacco for at least 4 weeks before the procedure. These products include cigarettes, chewing tobacco, and vaping devices, such as e-cigarettes. If you need help quitting, ask your health care provider. If you will be going home right after the procedure, plan to have a responsible adult: ?Take you home from the hospital or clinic. You will not be allowed to drive. ?Care for you for the time you are told. What happens during the procedure? An IV will be inserted into one of your veins. You will be given one or more of the following: ?A medicine to help you relax (sedative). ?A medicine to make you fall asleep (general anesthetic). ?A medicine that is injected into your spine to numb the area below and slightly above the injection site (spinal anesthetic). Your legs will be placed in foot rests (stirrups) so that your legs are apart and your knees are bent. The resectoscope will be passed through your urethra to your prostate. Parts of your prostate will be resected using the cutting edge of the resectoscope. Fluid will be passed to rinse out the cut tissues (irrigation). The resectoscope will be removed. A small, thin tube (catheter) will be passed through your urethra and into your bladder. The catheter will drain urine into a bag outside of your body. The procedure may vary among health care providers and hospitals. What happens after the procedure? Your blood pressure, heart rate, breathing rate, and blood oxygen level will be monitored until you leave the hospital or clinic. You will be given fluids through the IV. The IV will be removed when you start eating and drinking normally. You may have some pain. Pain medicine will be available to help you. You will have a catheter draining your urine. ?You may have blood in your urine. Your catheter may be kept in until your urine is clear. ?Your urinary drainage will be monitored. If necessary, your bladder may be rinsed out (irrigated) through your catheter. You will be encouraged to walk around as soon as possible. You may have to wear compression stockings. These stockings help to prevent blood clots and reduce swelling in your legs. If you were given a sedative during the procedure, it can affect you for several hours. Do not drive or operate machinery until your health care provider says that it is safe. Summary Transurethral resection of the prostate (TURP) is the removal (resection) of part of the prostate tissue. The goal of this procedure is to remove enough prostate tissue to allow for a normal flow of urine. Follow instructions from your health care provider about taking medicines and about eating and drinking before the procedure. This information is not intended to replace advice given to you by your health care provider. Make sure you discuss any questions you have with your health care provider. Document Revised: 08/14/2022 Document Reviewed: 08/14/2022 [employer] Patient Education 2022 [employer]. 11/05/2023 14:05:24 [facility] - Cystoscopy Discharge Instructions (CUSTOM) Cystoscopy Voiding after the procedure: there may be some pain, burning, urgency, frequency and blood tinged urine following the procedure. These symptoms usually resolve within 2-5 days. Drink the amount of fluid it takes to keep the urine pink to yellow or clear in color. Drinking enough water and fluids will help to ease any discomfort after your procedure. If you are having problems that seem out of the ordinary, please call. If unable to contact your physician and you feel it is an emergency, go to the nearest emergency room or call 911 Diet you may resume your normal diet. Activity you may resume your normal activities Call if you have a fever over 100 degrees. Follow Up Care 09/18/2023 12:00:05 With:Emmanuel FAULKNER Address: [facility] [address], [facility]- Business (1) When: Unknown Comments:Office will call to schedule follow up [facility] 11-05-2023 Note Cystoscopy ? Voiding after the procedure: there may be some pain, burning, urgency, frequency and blood tinged urine following the procedure. These symptoms usually resolve within 2-5 days. Drink the amount of fluid it takes to keep the urine pink to yellow or clear in color. Drinking enough water and fluids will help to ease any discomfort after your procedure. ? If you are having problems that seem out of the ordinary, please call. ? If unable to contact your physician and you feel it is an emergency, go to the nearest emergency room or call 911 ? Diet ? you may resume your normal diet. ? Activity ? you may resume your normal activities ? Call if you have a fever over 100 degrees. Urology Transurethral Resection of the Prostate Transurethral resection of the prostate (TURP) is the removal, or resection, of part of the prostate tissue. This procedure is done to treat an enlarged prostate gland (benign prostatic hyperplasia). The goal of TURP is to remove enough prostate tissue to allow for a normal flow of urine. The procedure will allow you to empty your bladder more completely when you urinate so that you can urinate less often. In a transurethral resection, a thin telescope with a light, a camera, and an electric cutting edge (resectoscope) is passed through the urethra and into the prostate. The opening of the urethra is at the end of the penis. Tell a health care provider about: ? Any allergies you have. ? All medicines you are taking, including vitamins, herbs, eye drops, creams, and iozy-naz-apfurds medicines. ? Any problems you or family members have had with anesthetic medicines. ? Any bleeding problems you have. ? Any surgeries you have had. ? Any medical conditions you have. ? Any prostate infections you have had. What are the risks? Generally, this is a safe procedure. However, problems may occur, including: ? Infection. ? Bleeding. ? Allergic reactions to medicines. ? Blood in the urine (hematuria). ? Damage to nearby structures or organs. Other problems may occur, but they are rare. They include: ? Dry ejaculation, or having no semen come out during orgasm. ? Erectile dysfunction, or being unable to have or keep an erection. ? Scarring that leads to narrowing of the urethra. This narrowing may block the flow of urine. ? Inability to control when you urinate (incontinence). ? Deep vein thrombosis. This is a blood clot that can develop in your leg. ? TURP syndrome. This can happen when you lose too much sodium during or after the procedure. Some signs and symptoms of this condition include: ? Weakness. ? Headaches. ? Nausea or vomiting. ? Muscle cramping. What happens before the procedure? When to stop eating and drinking Follow instructions from your health care provider about what you may eat and drink before your procedure. These may include: ? 8 hours before your procedure ? Stop eating most foods. Do not eat meat, fried foods, or fatty foods. ? Eat only light foods, such as toast or crackers. ? All liquids are okay except energy drinks and alcohol. ? 6 hours before your procedure ? Stop eating. ? Drink only clear liquids, such as water, clear fruit juice, black coffee, plain tea, and sports drinks. ? Do not drink energy drinks or alcohol. ? 2 hours before your procedure ? Stop drinking all liquids. ? You may be allowed to take medicines with small sips of water. If you do not follow your health care provider's instructions, your procedure may be delayed or canceled. Medicines Ask your health care provider about: ? Changing or stopping your regular medicines. This is especially important if you are taking diabetes medicines or blood thinners. ? Taking medicines such as aspirin and ibuprofen. These medicines can thin your blood. Do not take these medicines unless your health care provider tells you to take them. ? Taking upbn-ura-ehnjtcq medicines, vitamins, herbs, and supplements. Surgery safety Ask your health care provider what steps will be taken to help prevent infection. These steps may include: ? Removing hair at the surgery site. ? Washing skin with a germ-killing soap. ? Taking antibiotic medicine. General instructions ? Do not use any products that contain nicotine or tobacco for at least 4 weeks before the procedure. These products include cigarettes, chewing tobacco, and vaping devices, such as e-cigarettes. If you need help quitting, ask your health care provider. ? If you will be going home right after the procedure, plan to have a responsible adult: ? Take you home from the hospital or clinic. You will not be allowed to drive. ? Care for you for the time you are told. What happens during the procedure? ? An IV will be inserted into one of your veins. ? You will be given one or more of the following: ? A medicine to help you relax (sedative). ? A medicine to make you fall asleep (general anesthetic) (more content not included)... [facility] 09-18-2023 Hospital Discharge instructions Patient Education 09/18/2023 10:42:14 Benign Prostatic Hyperplasia Benign Prostatic Hyperplasia Benign prostatic hyperplasia (BPH) is an enlarged prostate gland that is caused by the normal aging process. The prostate may get bigger as a man gets older. The condition is not caused by cancer. The prostate is a walnut-sized gland that is involved in the production of semen. It is located in front of the rectum and below the bladder. The bladder stores urine. The urethra carries stored urine out of the body. An enlarged prostate can press on the urethra. This can make it harder to pass urine. The buildup of urine in the bladder can cause infection. Back pressure and infection may progress to bladder damage and kidney (renal) failure. What are the causes? This condition is part of the normal aging process. However, not all men develop problems from this condition. If the prostate enlarges away from the urethra, urine flow will not be blocked. If it enlarges toward the urethra and compresses it, there will be problems passing urine. What increases the risk? This condition is more likely to develop in men older than 50 years. What are the signs or symptoms? Symptoms of this condition include: Getting up often during the night to urinate. Needing to urinate frequently during the day. Difficulty starting urine flow. Decrease in size and strength of your urine stream. Leaking (dribbling) after urinating. Inability to pass urine. This needs immediate treatment. Inability to completely empty your bladder. Pain when you pass urine. This is more common if there is also an infection. Urinary tract infection (UTI). How is this diagnosed? This condition is diagnosed based on your medical history, a physical exam, and your symptoms. Tests will also be done, such as: A post-void bladder scan. This measures any amount of urine that may remain in your bladder after you finish urinating. A digital rectal exam. In a rectal exam, your health care provider checks your prostate by putting a lubricated, gloved finger into your rectum to feel the back of your prostate gland. This exam detects the size of your gland and any abnormal lumps or growths. An exam of your urine (urinalysis). A prostate specific antigen (PSA) screening. This is a blood test used to screen for prostate cancer. An ultrasound. This test uses sound waves to electronically produce a picture of your prostate gland. Your health care provider may refer you to a specialist in kidney and prostate diseases (urologist). How is this treated? Once symptoms begin, your health care provider will monitor your condition (active surveillance or watchful waiting). Treatment for this condition will depend on the severity of your condition. Treatment may include: Observation and yearly exams. This may be the only treatment needed if your condition and symptoms are mild. Medicines to relieve your symptoms, including: ?Medicines to shrink the prostate. ?Medicines to relax the muscle of the prostate. Surgery in severe cases. Surgery may include: ?Prostatectomy. In this procedure, the prostate tissue is removed completely through an open incision or with a laparoscope or robotics. ?Transurethral resection of the prostate (TURP). In this procedure, a tool is inserted through the opening at the tip of the penis (urethra). It is used to cut away tissue of the inner core of the prostate. The pieces are removed through the same opening of the penis. This removes the blockage. ?Transurethral incision (TUIP). In this procedure, small cuts are made in the prostate. This lessens the prostate's pressure on the urethra. ?Transurethral microwave thermotherapy (TUMT). This procedure uses microwaves to create heat. The heat destroys and removes a small amount of prostate tissue. ?Transurethral needle ablation (TUNA). This procedure uses radio frequencies to destroy and remove a small amount of prostate tissue. ?Interstitial laser coagulation (ILC). This procedure uses a laser to destroy and remove a small amount of prostate tissue. ?Transurethral electrovaporization (TUVP). This procedure uses electrodes to destroy and remove a small amount of prostate tissue. ?Prostatic urethral lift. This procedure inserts an implant to push the lobes of the prostate away from the urethra. Follow these instructions at home: Take [id number] and prescription medicines only as told by your health care provider. Monitor your symptoms for any changes. Contact your health care provider with any changes. Avoid drinking large amounts of liquid before going to bed or out in public. Avoid or reduce how much caffeine or alcohol you drink. Give yourself time when you urinate. Keep all follow-up visits. This is important. Contact a health care provider if: You have unexplained back pain. Your symptoms do not get better with treatment. You develop side effects from the medicine you are taking. Your urine becomes very dark or has a bad smell. Your lower abdomen becomes distended and you have trouble passing urine. Get help right away if: You have a fever or chills. You suddenly cannot urinate. You feel light-headed or very dizzy, or you faint. There are large amounts of blood or clots in your urine. Your urinary problems become hard to manage. You develop moderate to severe low back or flank pain. The flank is the side of your body between the ribs and the hip. These symptoms may be an emergency. Get help right away. Call 911. Do not wait to see if the symptoms will go away. Do not drive yourself to the hospital. Summary Benign prostatic hyperplasia (BPH) is an enlarged prostate that is caused by the normal aging process. It is not caused by cancer. An enlarged prostate can press on the urethra. This can make it hard to pass urine. This condition is more likely to develop in men older than 50 years. Get help right away if you suddenly cannot urinate. This information is not intended to replace advice given to you by your health care provider. Make sure you discuss any questions you have with your health care provider. Document Revised: 06/06/2022 Document Reviewed: 06/06/2022 [employer] Patient Education 2022 [employer]. Follow Up Care 09/12/2022 11:39:09 With:FRANKY CARLSON, Emmanuel Mcgrath, URL Address: [facility] [address] , [place] [address]- When: Unknown [facility] 09-12-2022 Hospital Discharge instructions Patient Education 09/12/2022 11:30:42 Calorie Counting for Weight Loss Calorie Counting for Weight Loss Calories are units of energy. Your body needs a certain amount of calories from food to keep you going throughout the day. When you eat more calories than your body needs, your body stores the extra calories as fat. When you eat fewer calories than your body needs, your body viveros fat to get the energy it needs. Calorie counting means keeping track of how many calories you eat and drink each day. Calorie counting can be helpful if you need to lose weight. If you make sure to eat fewer calories than your body needs, you should lose weight. Ask your health care provider what a healthy weight is for you. For calorie counting to work, you will need to eat the right number of calories in a day in order to lose a healthy amount of weight per week. A dietitian can help you determine how many calories you need in a day and will give you suggestions on how to reach your calorie goal. A healthy amount of weight to lose per week is usually 1 2 lb (0.5 0.9 kg). This usually means that your daily calorie intake should be reduced by 500 750 calories. Eating 1,200 1,500 calories per day can help most women lose weight. Eating 1,500 1,800 calories per day can help most men lose weight. What is my plan? My goal is to have calories per day. If I have this many calories per day, I should lose around pounds per week. What do I need to know about calorie counting? In order to meet your daily calorie goal, you will need to: Find out how many calories are in each food you would like to eat. Try to do this before you eat. Decide how much of the food you plan to eat. Write down what you ate and how many calories it had. Doing this is called keeping a food log. To successfully lose weight, it is important to balance calorie counting with a healthy lifestyle that includes regular activity. Aim for 150 minutes of moderate exercise (such as walking) or 75 minutes of vigorous exercise (such as running) each week. Where do I find calorie information? The number of calories in a food can be found on a Nutrition Facts label. If a food does not have a Nutrition Facts label, try to look up the calories online or ask your dietitian for help. Remember that calories are listed per serving. If you choose to have more than one serving of a food, you will have to multiply the calories per serving by the amount of servings you plan to eat. For example, the label on a package of bread might say that a serving size is 1 slice and that there are 90 calories in a serving. If you eat 1 slice, you will have eaten 90 calories. If you eat 2 slices, you will have eaten 180 calories. How do I keep a food log? Immediately after each meal, record the following information in your food log: What you ate. Don't forget to include toppings, sauces, and other extras on the food. How much you ate. This can be measured in cups, ounces, or number of items. How many calories each food and drink had. The total number of calories in the meal. Keep your food log near you, such as in a small notebook in your pocket, or use a mobile tyrell or website. Some programs will calculate calories for you and show you how many calories you have left for the day to meet your goal. What are some calorie counting tips? Use your calories on foods and drinks that will fill you up and not leave you hungry: ?Some examples of foods that fill you up are nuts and nut butters, vegetables, lean proteins, and high-fiber foods like whole grains. High-fiber foods are foods with more than 5 g fiber per serving. ?Drinks such as sodas, specialty coffee drinks, alcohol, and juices have a lot of calories, yet do not fill you up. Eat nutritious foods and avoid empty calories. Empty calories are calories you get from foods or beverages that do not have many vitamins or protein, such as candy, sweets, and soda. It is better to have a nutritious high-calorie food (such as an avocado) than a food with few nutrients (such as a bag of chips). Know how many calories are in the foods you eat most often. This will help you calculate calorie counts faster. Pay attention to calories in drinks. Low-calorie drinks include water and unsweetened drinks. Pay attention to nutrition labels for low fat or fat free foods. These foods sometimes have the same amount of calories or more calories than the full fat versions. They also often have added sugar, starch, or salt, to make up for flavor that was removed with the fat. Find a way of tracking calories that works for you. Get creative. Try different apps or programs if writing down calories does not work for you. What are some portion control tips? Know how many calories are in a serving. This will help you know how many servings of a certain food you can have. Use a measuring cup to measure serving sizes. You could also try weighing out portions on a kitchen scale. With time, you will be able to estimate serving sizes for some foods. Take some time to put servings of different foods on your favorite plates, bowls, and cups so you know what a serving looks like. Try not to eat straight from a bag or box. Doing this can lead to overeating. Put the amount you would like to eat in a cup or on a plate to make sure you are eating the right portion. Use smaller plates, glasses, and bowls to prevent overeating. Try not to multitask (for example, watch TV or use your computer) while eating. If it is time to eat, sit down at a table and enjoy your food. This will help you to know when you are full. It will also help you to be aware of what you are eating and how much you are eating. What are tips for following this plan? Reading food labels Check the calorie count compared to the serving size. The serving size may be smaller than what you are used to eating. Check the source of the calories. Make sure the food you are eating is high in vitamins and protein and low in saturated and trans fats. Shopping Read nutrition labels while you shop. This will help you make healthy decisions before you decide to purchase your food. Make a grocery list and stick to it. Cooking Try to cook your favorite foods in a healthier way. For example, try baking instead of frying. Use low-fat dairy products. Meal planning Use more fruits and vegetables. Half of your plate should be fruits and vegetables. Include lean proteins like poultry and fish. How do I count calories when eating out? Ask for smaller portion sizes. Consider sharing an entree and sides instead of getting your own entree. If you get your own entree, eat only half. Ask for a box at the beginning of your meal and put the rest of your entree in it so you are not tempted to eat it. If calories are listed on the menu, choose the lower calorie options. Choose dishes that include vegetables, fruits, whole grains, low-fat dairy products, and lean protein. Choose items that are boiled, broiled, grilled, or steamed. Stay away from items that are buttered, battered, fried, or served with cream sauce. Items labeled crispy are usually fried, unless stated otherwise. Choose water, low-fat milk, unsweetened iced tea, or other drinks without added sugar. If you want an alcoholic beverage, choose a lower calorie option such as a glass of wine or light beer. Ask for dressings, sauces, and syrups on the side. These are usually high in calories, so you should limit the amount you eat. If you want a salad, choose a garden salad and ask for grilled meats. Avoid extra toppings like raines, cheese, or fried items. Ask for the dressing on the side, or ask for olive oil and vinegar or lemon to use as dressing. Estimate how many servings of a food you are given. For example, a serving of cooked rice is cup or about the size of half a baseball. Knowing serving sizes will help you be aware of how much food you are eating at restaurants. The list below tells you how big or small some common portion sizes are based on everyday objects: ?1 oz 4 stacked dice. ?3 oz 1 deck of cards. ?1 tsp 1 . ?1 Tbsp a ping-pong ball. ?2 Tbsp 1 ping-pong ball. ? cup baseball. ?1 cup 1 baseball. Summary Calorie counting means keeping track of how many calories you eat and drink each day. If you eat fewer calories than your body needs, you should lose weight. A healthy amount of weight to lose per week is usually 1 2 lb (0.5 0.9 kg). This usually means reducing your daily calorie intake by 500 750 calories. The number of calories in a food can be found on a Nutrition Facts label. If a food does not have a Nutrition Facts label, try to look up the calories online or ask your dietitian for help. Use your calories on foods and drinks that will fill you up, and not on foods and drinks that will leave you hungry. Use smaller plates, glasses, and bowls to prevent overeating. This information is not intended to replace advice given to you by your health care provider. Make sure you discuss any questions you have with your health care provider. Document Released: 11/18/2006 Document Revised: 08/07/2019 Document Reviewed: 10/18/2017 [employer] Patient Education 2020 [employer]. 09/12/2022 11:30:36 Prostate Cancer Screening Prostate Cancer Screening The prostate is a walnut-sized gland that is located below the bladder and in front of the rectum in males. The function of the prostate (prostate gland) is to add fluid to semen during ejaculation. Prostate cancer is the second most common type of cancer in men. A screening test for cancer is a test that is done before cancer symptoms start. Screening can help to identify cancer at an early stage, when the cancer can be treated more easily. The recommended prostate cancer screening test is a blood test called the prostate-specific antigen (PSA) test. PSA is a protein that is made in the prostate. As you age, your prostate naturally produces more PSA. Abnormally high PSA levels may be caused by: Prostate cancer. An enlarged prostate that is not caused by cancer (benign prostatic hyperplasia, BPH). This condition is very common in older men. A prostate gland infection (prostatitis). Medicines to assist with hair growth, such as finasteride. Depending on the PSA results, you may need more tests, such as: A physical exam to check the size of your prostate gland. Blood and imaging tests. A procedure to remove tissue samples from your prostate gland for testing (biopsy). Who should have screening? Screening recommendations vary based on age. If you are younger than age 40, screening is not recommended. If you are age 40 54 and you have no risk factors, screening is not recommended. If you are younger than age 55, ask your health care provider if you need screening if you have one of these risk factors: ?Being of -[place] descent. ?Having a family history of prostate cancer. If you are age 55 69, talk with your health care provider about your need for screening and how often screening should be done. If you are older than age 70, screening is not recommended. This is because the risks that screening can cause are greater than the benefits that it may provide (risks outweigh the benefits). If you are at high risk for prostate cancer, your health care provider may recommend that you have screenings more often or start screening at a younger age. You may be at high risk if you: Are older than age 55. Are -[place]. Have a father, brother, or uncle who has been diagnosed with prostate cancer. The risk may be higher if your family member's cancer occurred at an early age. What are the benefits of screening? There is a small chance that screening may lower your risk of dying from prostate cancer. The chance is small because prostate cancer is typically a slow-growing cancer, and most men with prostate cancer from a different cause. What are the risks of screening? The main risk of prostate cancer screening is diagnosing and treating prostate cancer that would never have caused any symptoms or problems (overdiagnosis and overtreatment). PSA screening cannot tell you if your PSA is high due to cancer or a different cause. A prostate biopsy is the only procedure to diagnose prostate cancer. Even the results of a biopsy may not tell you if your cancer needs to be treated. Slow-growing prostate cancer may not need any treatment other than monitoring, so diagnosing and treating it may cause unnecessary stress or other side effects. A prostate biopsy may also cause: Infection or fever. A false negative. This is a result that shows that you do not have prostate cancer when you actually do have prostate cancer. Questions to ask your health care provider When should I start prostate cancer screening? What is my risk for prostate cancer? How often do I need screening? What type of screening tests do I need? How do I get my test results? What do my results mean? Do I need treatment? Contact a health care provider if: You have difficulty urinating. You have pain when you urinate or ejaculate. You have blood in your urine or semen. You have pain in your back or in the area of your prostate. You have trouble getting or maintaining an erection (erectile dysfunction, ED). Summary Prostate cancer is a common type of cancer in men. The prostate (prostate gland) is located below the bladder and in front of the rectum. This gland adds fluid to semen during ejaculation. Prostate cancer screening may identify cancer at an early stage, when the cancer can be treated more easily. The prostate-specific antigen (PSA) test is the recommended screening test for prostate cancer. Discuss the risks and benefits of prostate cancer screening with your health care provider. If you are age 70 or older, screening is likely to lead to more risks than benefits (risks outweigh the benefits). This information is not intended to replace advice given to you by your health care provider. Make sure you discuss any questions you have with your health care provider. Document Released: 08/29/2018 Document Revised: 10/31/2018 Document Reviewed: 08/29/2018 [employer] Patient Education 2020 [employer] 09/12/2022 11:30:32 Benign Prostatic Hyperplasia Benign Prostatic Hyperplasia Benign prostatic hyperplasia (BPH) is an enlarged prostate gland that is caused by the normal aging process and not by cancer. The prostate is a walnut-sized gland that is involved in the production of semen. It is located in front of the rectum and below the bladder. The bladder stores urine and the urethra is the tube that carries the urine out of the body. The prostate may get bigger as a man gets older. An enlarged prostate can press on the urethra. This can make it harder to pass urine. The build-up of urine in the bladder can cause infection. Back pressure and infection may progress to bladder damage and kidney (renal) failure. What are the causes? This condition is part of a normal aging process. However, not all men develop problems from this condition. If the prostate enlarges away from the urethra, urine flow will not be blocked. If it enlarges toward the urethra and compresses it, there will be problems passing urine. What increases the risk? This condition is more likely to develop in men over the age of 50 years. What are the signs or symptoms? Symptoms of this condition include: Getting up often during the night to urinate. Needing to urinate frequently during the day. Difficulty starting urine flow. Decrease in size and strength of your urine stream. Leaking (dribbling) after urinating. Inability to pass urine. This needs immediate treatment. Inability to completely empty your bladder. Pain when you pass urine. This is more common if there is also an infection. Urinary tract infection (UTI). How is this diagnosed? This condition is diagnosed based on your medical history, a physical exam, and your symptoms. Tests will also be done, such as: A post-void bladder scan. This measures any amount of urine that may remain in your bladder after you finish urinating. A digital rectal exam. In a rectal exam, your health care provider checks your prostate by putting a lubricated, gloved finger into your rectum to feel the back of your prostate gland. This exam detects the size of your gland and any abnormal lumps or growths. An exam of your urine (urinalysis). A prostate specific antigen (PSA) screening. This is a blood test used to screen for prostate cancer. An ultrasound. This test uses sound waves to electronically produce a picture of your prostate gland. Your health care provider may refer you to a specialist in kidney and prostate diseases (urologist). How is this treated? Once symptoms begin, your health care provider will monitor your condition (active surveillance or watchful waiting). Treatment for this condition will depend on the severity of your condition. Treatment may include: Observation and yearly exams. This may be the only treatment needed if your condition and symptoms are mild. Medicines to relieve your symptoms, including: ?Medicines to shrink the prostate. ?Medicines to relax the muscle of the prostate. Surgery in severe cases. Surgery may include: ?Prostatectomy. In this procedure, the prostate tissue is removed completely through an open incision or with a laparoscope or robotics. ?Transurethral resection of the prostate (TURP). In this procedure, a tool is inserted through the opening at the tip of the penis (urethra). It is used to cut away tissue of the inner core of the prostate. The pieces are removed through the same opening of the penis. This removes the blockage. ?Transurethral incision (TUIP). In this procedure, small cuts are made in the prostate. This lessens the prostate's pressure on the urethra. ?Transurethral microwave thermotherapy (TUMT). This procedure uses microwaves to create heat. The heat destroys and removes a small amount of prostate tissue. ?Transurethral needle ablation (TUNA). This procedure uses radio frequencies to destroy and remove a small amount of prostate tissue. ?Interstitial laser coagulation (ILC). This procedure uses a laser to destroy and remove a small amount of prostate tissue. ?Transurethral electrovaporization (TUVP). This procedure uses electrodes to destroy and remove a small amount of prostate tissue. ?Prostatic urethral lift. This procedure inserts an implant to push the lobes of the prostate away from the urethra. Follow these instructions at home: Take vopi-vak-sdvpqmg and prescription medicines only as told by your health care provider. Monitor your symptoms for any changes. Contact your health care provider with any changes. Avoid drinking large amounts of liquid before going to bed or out in public. Avoid or reduce how much caffeine or alcohol you drink. Give yourself time when you urinate. Keep all follow-up visits as told by your health care provider. This is important. Contact a health care provider if: You have unexplained back pain. Your symptoms do not get better with treatment. You develop side effects from the medicine you are taking. Your urine becomes very dark or has a bad smell. Your lower abdomen becomes distended and you have trouble passing your urine. Get help right away if: You have a fever or chills. You suddenly cannot urinate. You feel lightheaded, or very dizzy, or you faint. There are large amounts of blood or clots in the urine. Your urinary problems become hard to manage. You develop moderate to severe low back or flank pain. The flank is the side of your body between the ribs and the hip. These symptoms may represent a serious problem that is an emergency. Do not wait to see if the symptoms will go away. Get medical help right away. Call your local emergency services (911 in the [place] Do not drive yourself to the hospital. Summary Benign prostatic hyperplasia (BPH) is an enlarged prostate that is caused by the normal aging process and not by cancer. An enlarged prostate can press on the urethra. This can make it hard to pass urine. This condition is part of a normal aging process and is more likely to develop in men over the age of 50 years. Get help right away if you suddenly cannot urinate. This information is not intended to replace advice given to you by your health care provider. Make sure you discuss any questions you have with your health care provider. Document Released: 11/18/2006 Document Revised: 10/13/2019 Document Reviewed: 2017 [employer] Patient Education 2020 [employer]. 09/12/2022 11:25:46 Benign Prostatic Hyperplasia Benign Prostatic Hyperplasia Benign prostatic hyperplasia (BPH) is an enlarged prostate gland that is caused by the normal aging process and not by cancer. The prostate is a walnut-sized gland that is involved in the production of semen. It is located in front of the rectum and below the bladder. The bladder stores urine and the urethra is the tube that carries the urine out of the body. The prostate may get bigger as a man gets older. An enlarged prostate can press on the urethra. This can make it harder to pass urine. The build-up of urine in the bladder can cause infection. Back pressure and infection may progress to bladder damage and kidney (renal) failure. What are the causes? This condition is part of a normal aging process. However, not all men develop problems from this condition. If the prostate enlarges away from the urethra, urine flow will not be blocked. If it enlarges toward the urethra and compresses it, there will be problems passing urine. What increases the risk? This condition is more likely to develop in men over the age of 50 years. What are the signs or symptoms? Symptoms of this condition include: Getting up often during the night to urinate. Needing to urinate frequently during the day. Difficulty starting urine flow. Decrease in size and strength of your urine stream. Leaking (dribbling) after urinating. Inability to pass urine. This needs immediate treatment. Inability to completely empty your bladder. Pain when you pass urine. This is more common if there is also an infection. Urinary tract infection (UTI). How is this diagnosed? This condition is diagnosed based on your medical history, a physical exam, and your symptoms. Tests will also be done, such as: A post-void bladder scan. This measures any amount of urine that may remain in your bladder after you finish urinating. A digital rectal exam. In a rectal exam, your health care provider checks your prostate by putting a lubricated, gloved finger into your rectum to feel the back of your prostate gland. This exam detects the size of your gland and any abnormal lumps or growths. An exam of your urine (urinalysis). A prostate specific antigen (PSA) screening. This is a blood test used to screen for prostate cancer. An ultrasound. This test uses sound waves to electronically produce a picture of your prostate gland. Your health care provider may refer you to a specialist in kidney and prostate diseases (urologist). How is this treated? Once symptoms begin, your health care provider will monitor your condition (active surveillance or watchful waiting). Treatment for this condition will depend on the severity of your condition. Treatment may include: Observation and yearly exams. This may be the only treatment needed if your condition and symptoms are mild. Medicines to relieve your symptoms, including: ?Medicines to shrink the prostate. ?Medicines to relax the muscle of the prostate. Surgery in severe cases. Surgery may include: ?Prostatectomy. In this procedure, the prostate tissue is removed completely through an open incision or with a laparoscope or robotics. ?Transurethral resection of the prostate (TURP). In this procedure, a tool is inserted through the opening at the tip of the penis (urethra). It is used to cut away tissue of the inner core of the prostate. The pieces are removed through the same opening of the penis. This removes the blockage. ?Transurethral incision (TUIP). In this procedure, small cuts are made in the prostate. This lessens the prostate's pressure on the urethra. ?Transurethral microwave thermotherapy (TUMT). This procedure uses microwaves to create heat. The heat destroys and removes a small amount of prostate tissue. ?Transurethral needle ablation (TUNA). This procedure uses radio frequencies to destroy and remove a small amount of prostate tissue. ?Interstitial laser coagulation (ILC). This procedure uses a laser to destroy and remove a small amount of prostate tissue. ?Transurethral electrovaporization (TUVP). This procedure uses electrodes to destroy and remove a small amount of prostate tissue. ?Prostatic urethral lift. This procedure inserts an implant to push the lobes of the prostate away from the urethra. Follow these instructions at home: Take nzpy-mgh-xvjtjcq and prescription medicines only as told by your health care provider. Monitor your symptoms for any changes. Contact your health care provider with any changes. Avoid drinking large amounts of liquid before going to bed or out in public. Avoid or reduce how much caffeine or alcohol you drink. Give yourself time when you urinate. Keep all follow-up visits as told by your health care provider. This is important. Contact a health care provider if: You have unexplained back pain. Your symptoms do not get better with treatment. You develop side effects from the medicine you are taking. Your urine becomes very dark or has a bad smell. Your lower abdomen becomes distended and you have trouble passing your urine. Get help right away if: You have a fever or chills. You suddenly cannot urinate. You feel lightheaded, or very dizzy, or you faint. There are large amounts of blood or clots in the urine. Your urinary problems become hard to manage. You develop moderate to severe low back or flank pain. The flank is the side of your body between the ribs and the hip. These symptoms may represent a serious problem that is an emergency. Do not wait to see if the symptoms will go away. Get medical help right away. Call your local emergency services (911 in the [place] Do not drive yourself to the hospital. Summary Benign prostatic hyperplasia (BPH) is an enlarged prostate that is caused by the normal aging process and not by cancer. An enlarged prostate can press on the urethra. This can make it hard to pass urine. This condition is part of a normal aging process and is more likely to develop in men over the age of 50 years. Get help right away if you suddenly cannot urinate. This information is not intended to replace advice given to you by your health care provider. Make sure you discuss any questions you have with your health care provider. Document Released: 11/18/2006 Document Revised: 10/13/2019 Document Reviewed: 2017 [employer] Patient Education 2020 [employer] Follow Up Care 05/16/2022 11:42:17 With:FRANKY CARLSON, Emmanuel Mcgrath, URL Address: [address] [place] [phone] When:Within 1 Year(s) Comments:1 year with PSA/IMELDA [facility] 09-27-2022 Note EXAMINATION: XR CHES T 2 V HISTORY: Pre-surgery evaluation COMPARISON: No relevant comparison available. TECHNIQUE: PA and lateral FINDINGS: LUNGS: No significant pulmonary parenchymal abnormalities. VASCULATURE: No increased pulmonary vasculature. PLEURA: No pneumothorax, effusion, or pleural thickening. CARDIAC: No cardiomegaly or cardiac silhouette abnormality. MEDIASTINUM: No visible mass or adenopathy. BONES: Mild degenerative disc disease and spondylosis without visible acute abnormalities. OTHER: Negative. IMPRESSION: No acute disease. Electronically authenticated by: DELIA LIU Date: 2022-08-28 18:01 [facility] 06-20-2022 Evaluation + Plan note Extrac dilip from: Title:Post-anesthesia -Spinal Author:Bayron Smith Jr., DO Date:06/20/22 Plan Transfer/ Discharge: Condition stable. Extracted from: Title:Pre-anesthesia - Adult Author:Bayron Smith Jr., DO Date:06/20/22 Plan [place] [employer] (ASA) physical status classification: Class II. Anesthetic Preoperative Plan Anesthesia: General. , Regional Adductor canal block. Anesthetic plan, risks, benefits, and alternatives discussed with the patient and/or family. Patient verbalized understanding. Adverse reactions, complications, and alternatives discujssed. Consent signed and on chart.. Future Appointments Appointment Date:08/22/2022 10:15:00 AM Scheduled Provider:Emmanuel FAULKNER MD Location:[facility] Appointment Type:URO Office Visit [facility]07-20-2022 Hospital Discharge instructions Patient Education 06/20/2022 10:29:21 How to Use an Incentive Spirometer How To Use an Incentive Spirometer An incentive spirometer is a tool that measures how well you are filling your lungs with each breath. Learning to take long, deep breaths using this tool can help you keep your lungs clear and active. This may help to reverse or lessen your chance of developing breathing (pulmonary) problems, especially infection. You may be asked to use a spirometer: After a surgery. If you have a lung problem or a history of smoking. After a long period of time when you have been unable to move or be active. If the spirometer includes an indicator to show the highest number that you have reached, your health care provider or respiratory therapist will help you set a goal. Keep a list (log) of your progress as told by your health care provider. What are the risks? Breathing too quickly may cause dizziness or cause you to pass out. Take your time so you do not get dizzy or light-headed. If you are in pain, you may need to take pain medicine before doing incentive spirometry. It is harder to take a deep breath if you are having pain. How to use your incentive spirometer 1.Sit up on the edge of your bed or on a chair. 2.Hold the incentive spirometer so that it is in an upright position. 3.Before you use the spirometer, breathe out normally. 4.Place the mouthpiece in your mouth. Make sure your lips are closed tightly around it. 5.Breathe in slowly and as deeply as you can through your mouth, causing the piston or the ball to rise toward the top of the chamber. 6.Hold your breath for 3 5 seconds, or for as long as possible. If the spirometer includes a nutritional health coach indicator, use this to guide you in breathing. Slow down your breathing if the indicator goes above the marked areas. 7.Remove the mouthpiece from your mouth and breathe out normally. The piston or ball will return tothe bottom of the chamber. 8.Rest for a few seconds, then repeat the steps 10 or more times. Take your time and take a few normal breaths between deep breaths so that you do not get dizzy or light-headed. Do this every 1 2 hours when you are awake. 9.If the spirometer includes a goal marker to show the highest number you have reached (best effort), use this as a goal to work toward during each repetition. 10.After each set of 10 deep breaths, cough a few times. This will help to make sure that your lungs are clear. If you have an incision on your chest or abdomen from surgery, place a pillow or a rolled-up towel firmly against the incision when you cough. This can help to reduce pain from coughing. General tips When you become able to get out of bed, walk around often and continue to cough to help clear your lungs. Keep using the incentive spirometer until your health care provider says it is okay to stop using it. If you have been in the hospital, you may be told to keep using the spirometer at home. Contact a health care provider if: You are having difficulty using the spirometer. You have trouble using the spirometer as often as instructed. Your pain medicine is not giving enough relief for you to use the spirometer as told. You have a fever. You develop shortness of breath. Get help right away if: You develop a cough with bloody mucus from the lungs (bloody sputum). You have fluid or blood coming from an incision site after you cough. Summary An incentive spirometer is a tool that can help you learn to take long, deep breaths to keep your lungs clear and active. You may be asked to use a spirometer after a surgery, if you have a lung problem or a history of smoking, or if you have been inactive for a long period of time. Use your incentive spirometer as instructed every 1 2 hours while you are awake. If you have an incision on your chest or abdomen, place a pillow or a rolled-up towel firmly against your incision when you cough. This will help to reduce pain. This information is not intended to replace advice given to you by your health care provider. Make sure you discuss any questions you have with your health care provider. Document Released: 03/30/2008 Document Revised: 12/11/2018 Document Reviewed: 10/01/2018 [employer] Patient Education 2020 [employer]. 06/20/2022 10:29:21 Knee Cryocuff Patient Instructions - FT (CUSTOM) 06/20/2022 10:29:21 Post Op Patient Instructions - FT (CUSTOM) 06/20/2022 07:24:43 Ozzie Santillan - Total Knee Arthroplasty (Custom) [place], [place] [facility] DISCHARGE INSTRUCTIONS: TOTAL KNEE ARTHROPLASTY INCISION CARE: The bandage may be changed by your home health care nurse at 7-10 days postoperatively. A new Aquacel bandage should then be placed. The bandage is waterproof, so you may shower at home. Steri-strips (paper tape strips) may be applied to the incision if any slight wound separation is noted. These should remain in place for five days and then they may come off in the shower. Please notify the office if any increase in redness, tenderness, drainage, fever, or wound separation is noted beyond this point. Compression stockings may be helpful if any significant or uncomfortable swelling in the legs is noted postoperatively. Use and removal instructions should be given by physical therapy. If the swelling is below the knee, knee high compression stockings may suffice. If this does cause swelling into the thigh region, waist high compression stockings may be beneficial as well. These can be obtained from most pharmacies, or can be obtained through Home Health. The mild grade compression stockings are best used initially. When applying or removing the compression stocking, you may need assistance. MEDICATIONS: You may resume your home medications at the time of discharge. Arixtra and Lovenox are mild blood thinners that prevent the development of blood clots in the legs. One of these has been used during your hospitalization. After discharge home you should continue the use of two stomach coated baby Aspirin tablets daily with your largest meal for 30 days after home discharge. Please notify your doctor if you have a stomach sensitivity to Aspirin or history of previous stomach ulcers. Pain medication has been prescribed as well. You may continue to use the pain medication every fourhours as needed. Any narcotic pain medication can cause side effects including stomach upset, constipation, or light-headedness. You should not drive or operate machinery, or drink alcohol while using the narcotic pain medication. You should not use other pain medications with this prescription pain medication unless further directed by your physician. PHYSICAL THERAPY Continue the range of motion and strengthening exercises initiated by Physical Therapy in the hospital. Continue weight bearing, as ordered, to the operated knee for four to six weeks as directed in Physical Therapy, or until your strength is improved and Physical Therapy will then allow you to progress to full weight. This will be with the use of a walker or crutches initially. After four or six weeks you may then progress to the use of one crutch or a cane. A quad-cane is preferred as this is more stable. Physical therapy as begun in the hospital will continue at home, possibly with the pharmacy sales assistant of Home Health Physical Therapy or in the hospital as an outpatient. When you have become independent withthe physical therapy program, this will then be discontinued as a supervised program and you will be instructed to continue the physical therapy exercises at home. Your exercises are cleary to successful rehabilitation. You should gain full extension first, hopefully before hospital discharge, and gain 90 degrees flexion by one month post-op. Do the exercises daily, twice if preferred. DRIVING: Please do not drive for 4-6 weeks pending therapy progress. 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 It is therefore advised not to drive until after yourfirst office visit following surgery. FOLLOW-UP OFFICE VISIT: Prince Santillan, DO [facility] [address] [place] [id number] Reviewed: Follow Up Care 04/23/2022 10:12:39 With:Prince Santillan Address: [address] [place] [phone] (1) When:07/05/2022 13:45:00 Comments:Call for any problems.Keep scheduled appointment [facility]06-15-2022 Hospital Discharge instructions Patient Education 05/16/2022 11:18:04 Prostatitis Prostatitis Prostatitis is swelling or inflammation of the prostate gland. The prostate is a walnut-sized glandthat is involved in the production of semen. It is located below a man's bladder, in front of the rectum. There are four types of prostatitis: Chronic nonbacterial prostatitis. This is the most common type of prostatitis. It may be associatedwith a viral infection or autoimmune disorder. Acute bacterial prostatitis. This is the least common type of prostatitis. It starts quickly and isusually associated with a bladder infection, high fever, and shaking chills. It can occur at any age. Chronic bacterial prostatitis. This type usually results from acute bacterial prostatitis that happens repeatedly (is recurrent) or has not been treated properly. It can occur in men of any age but is most common among middle-aged men whose prostate has begun to get larger. The symptoms are not as severe as symptoms caused by acute bacterial prostatitis. Prostatodynia or chronic pelvic pain syndrome (CPPS). This type is also called pelvic floor disorder. It is associated with increased muscular tone in the pelvis surrounding the prostate. What are the causes? Bacterial prostatitis is caused by infection from bacteria. Chronic nonbacterial prostatitis may becaused by: Urinary tract infections (UTIs). Nerve damage. A response by the body s disease-fighting system (autoimmune response). Chemicals in the urine. The causes of the other types of prostatitis are usually not known. What are the signs or symptoms? Symptoms of this condition vary depending upon the type of prostatitis. If you have acute bacterialprostatitis, you may experience: Urinary symptoms, such as: ?Painful urination. ?Burning during urination. ?Frequent and sudden urges to urinate. ?Inability to start urinating. ?A weak or interrupted stream of urine. Vomiting. Nausea. Fever. Chills. Inability to empty the bladder completely. Pain in the: ?Muscles or joints. ?Lower back. ?Lower abdomen. If you have any of the other types of prostatitis, you may experience: Urinary symptoms, such as: ?Sudden urges to urinate. ?Frequent urination. ?Difficulty starting urination. ?Weak urine stream. ?Dribbling after urination. Discharge from the urethra. The urethra is a tube that opens at the end of the penis. Pain in the: ?Testicles. ?Penis or tip of the penis. ?Rectum. ?Area in front of the rectum and below the scrotum (perineum). Problems with sexual function. Painful ejaculation. Bloody semen. How is this diagnosed? This condition may be diagnosed based on: A physical and medical exam. Your symptoms. A urine test to check for bacteria. An exam in which a health care provider uses a finger to feel the prostate (digital rectal exam). A test of a sample of semen. Blood tests. Ultrasound. Removal of prostate tissue to be examined under a microscope (biopsy). Tests to check how your body handles urine (urodynamic tests). A test to look inside your bladder or urethra (cystoscopy). How is this treated? Treatment for this condition depends on the type of prostatitis. Treatment may involve: Medicines to relieve pain or inflammation. Medicines to help relax your muscles. Physical therapy. Heat therapy. Techniques to help you control certain body functions (biofeedback). Relaxation exercises. Antibiotic medicine, if your condition is caused by bacteria. Warm water baths (sitz baths). Sitz baths help with relaxing your pelvic floor muscles, which helpsto relieve pressure on the prostate. Follow these instructions at home: Take iktm-cen-vniowdv and prescription medicines only as told by your health care provider. If you were prescribed an antibiotic, take it as told by your health care provider. Do not stop taking the antibiotic even if you start to feel better. If physical therapy, biofeedback, or relaxation exercises were prescribed, do exercises as instructed. Take sitz baths as directed by your health care provider. For a sitz bath, sit in warm water that is deep enough to cover your hips and buttocks. Keep all follow-up visits as told by your health care provider. This is important. Contact a health care provider if: Your symptoms get worse. You have a fever. Get help right away if: You have chills. You feel nauseous. You vomit. You feel light-headed or feel like you are going to faint. You are unable to urinate. You have blood or blood clots in your urine. This information is not intended to replace advice given to you by your health care provider. Make sure you discuss any questions you have with your health care provider. Document Released: 11/15/2001 Document Revised: 01/31/2019 Document Reviewed: 08/08/2017 [employer] Patient Education 2020 [employer]. Follow Up Care 04/04/2022 10:32:02 With:FRANKY CARLSON, Emmanuel Mcgrath, URL Address: [facility] [address] , [place] [address] [phone] When: Unknown [facility] 05-04-2022 Hospital Discharge instructions Patient Education 04/04/2022 10:22:18 Prostatitis Prostatitis Prostatitis is swelling or inflammation of the prostate gland. The prostate is a walnut-sized glandthat is involved in the production of semen. It is located below a man's bladder, in front of the rectum. There are four types of prostatitis: Chronic nonbacterial prostatitis. This is the most common type of prostatitis. It may be associatedwith a viral infection or autoimmune disorder. Acute bacterial prostatitis. This is the least common type of prostatitis. It starts quickly and isusually associated with a bladder infection, high fever, and shaking chills. It can occur at any age. Chronic bacterial prostatitis. This type usually results from acute bacterial prostatitis that happens repeatedly (is recurrent) or has not been treated properly. It can occur in men of any age but is most common among middle-aged men whose prostate has begun to get larger. The symptoms are not as severe as symptoms caused by acute bacterial prostatitis. Prostatodynia or chronic pelvic pain syndrome (CPPS). This type is also called pelvic floor disorder. It is associated with increased muscular tone in the pelvis surrounding the prostate. What are the causes? Bacterial prostatitis is caused by infection from bacteria. Chronic nonbacterial prostatitis may becaused by: Urinary tract infections (UTIs). Nerve damage. A response by the body s disease-fighting system (autoimmune response). Chemicals in the urine. The causes of the other types of prostatitis are usually not known. What are the signs or symptoms? Symptoms of this condition vary depending upon the type of prostatitis. If you have acute bacterialprostatitis, you may experience: Urinary symptoms, such as: ?Painful urination. ?Burning during urination. ?Frequent and sudden urges to urinate. ?Inability to start urinating. ?A weak or interrupted stream of urine. Vomiting. Nausea. Fever. Chills. Inability to empty the bladder completely. Pain in the: ?Muscles or joints. ?Lower back. ?Lower abdomen. If you have any of the other types of prostatitis, you may experience: Urinary symptoms, such as: ?Sudden urges to urinate. ?Frequent urination. ?Difficulty starting urination. ?Weak urine stream. ?Dribbling after urination. Discharge from the urethra. The urethra is a tube that opens at the end of the penis. Pain in the: ?Testicles. ?Penis or tip of the penis. ?Rectum. ?Area in front of the rectum and below the scrotum (perineum). Problems with sexual function. Painful ejaculation. Bloody semen. How is this diagnosed? This condition may be diagnosed based on: A physical and medical exam. Your symptoms. A urine test to check for bacteria. An exam in which a health care provider uses a finger to feel the prostate (digital rectal exam). A test of a sample of semen. Blood tests. Ultrasound. Removal of prostate tissue to be examined under a microscope (biopsy). Tests to check how your body handles urine (urodynamic tests). A test to look inside your bladder or urethra (cystoscopy). How is this treated? Treatment for this condition depends on the type of prostatitis. Treatment may involve: Medicines to relieve pain or inflammation. Medicines to help relax your muscles. Physical therapy. Heat therapy. Techniques to help you control certain body functions (biofeedback). Relaxation exercises. Antibiotic medicine, if your condition is caused by bacteria. Warm water baths (sitz baths). Sitz baths help with relaxing your pelvic floor muscles, which helpsto relieve pressure on the prostate. Follow these instructions at home: Take [id number] and prescription medicines only as told by your health care provider. If you were prescribed an antibiotic, take it as told by your health care provider. Do not stop taking the antibiotic even if you start to feel better. If physical therapy, biofeedback, or relaxation exercises were prescribed, do exercises as instructed. Take sitz baths as directed by your health care provider. For a sitz bath, sit in warm water that is deep enough to cover your hips and buttocks. Keep all follow-up visits as told by your health care provider. This is important. Contact a health care provider if: Your symptoms get worse. You have a fever. Get help right away if: You have chills. You feel nauseous. You vomit. You feel light-headed or feel like you are going to faint. You are unable to urinate. You have blood or blood clots in your urine. This information is not intended to replace advice given to you by your health care provider. Make sure you discuss any questions you have with your health care provider. Document Released: 11/15/2001 Document Revised: 01/31/2019 Document Reviewed: 08/08/2017 [employer] Patient Education 2020 [employer]. Follow Up Care 03/06/2022 10:31:22 With:Emmanuel FAULKNER MD, URL Address: [facility] [address] , [place] [address]- Business (1) When: Unknown [facility] evaluation + Plan note Future Appointments Appointment Date:05/16/2022 10:15:00 AM Scheduled Provider:Emmanuel FAULKNER MD Location:[facility] Appointment Type:URO Office Visit Diagnostic Tests Pending * PSA Free & Total 04/04/22 [facility] Evaluation + Plan note Future Appointments Appointment Date:06/05/2022 02:30:00 PM Scheduled Provider: Location:[facility] Appointment Type:Surgical PAT FT Appointment Date:06/05/2022 03:30:00 PM Scheduled Provider: Location[facility] Appointment Type:CT Lower Extremity (FT) Appointment Date:06/20/2022 10:30:00 AM Scheduled Provider: Location:[facility] Appointment Type:Surgery FT Appointment Date:08/22/2022 10:15:00 AM Scheduled Provider:Emmanuel FAULKNER MD Location:[facility] Appointment Type:URO Office Visit Future Scheduled Tests Radiology* CT Lower Extremity w/o Contrast Left 06/05/22 [facility] Evaluation + Plan note Future Appointments Appointment Date:06/05/2022 02:30:00 PM Scheduled Provider: Location:[facility] Appointment Type:Surgical PAT FT Appointment Date:06/05/2022 03:30:00 PM Scheduled Provider: [facility] Appointment Type:CT Lower Extremity (FT) Appointment Date:06/20/2022 10:30:00 AM Scheduled Provider: Location:[facility] Appointment Type:Surgery FT Appointment Date:08/22/2022 10:15:00 AM Scheduled Provider:Emmanuel FAULKNER MD Location:[facility] Appointment Type:URO Office Visit Diagnostic Tests Pending * PSA Total 05/16/22 Future Scheduled Tests Radiology* CT Lower Extremity w/o Contrast Left [facility] Appointment Date:06/20/2022 10:30:00 AM Scheduled Provider: Location:[facility] Appointment Type:Surgery FT Appointment Date:08/22/2022 10:15:00 AM Scheduled Provider:Emmanuel FAULKNER MD [facility] Future Appointments Appointment Date:09/12/2022 10:15:00 AM Scheduled Provider:Emmanuel FAULKNER MD Location:[facility] App[facility] Future Appointments Appointment Date:09/18/2023 10:15:00 AM Scheduled Provider:Emmanuel FAULKNER MD Location:[facility] Appointment Type:URO Office Visit Diagnostic Tests Pending * PSA Total 09/12/22 [facility] Evaluation + Plan note Future Appointments Appointment Date:10/29/2023 08:30:00 AM Scheduled Provider: Location:[facility] Services Appointment Type:Urology CALL PAT FT Appointment Date:11/05/2023 01:45:00 PM Scheduled Provider: Location:[facility] Appointment Type:Urology FT Diagnostic Tests Pending * PSA Free & Total 09/18/23 [facility] Evaluation + Plan note Future Appointments Appointment Date:12/30/2023 10:30:00 AM Scheduled Provider[facility] Nurse Visit Appointment Date:01/13/2024 01:15:00 PM Scheduled Provider:Emmanuel FAULKNER MD [facility] Future Appointments Appointment Date:12/30/2023 10:30:00 AM Scheduled Provider: [facility] Type:URO Nurse Visit Appointment Date:01/13/2024 01:15:00 PM Scheduled Provider:Emmanuel FAULKNER MD [facility] Appointment Type:URO Office Visit Diagnostic Tests Pending * Urine Culture [facility] information available [facility] Work Phone: Hospital course Narrative No data available for this section [facility] Hospital Discharge instructions No data available for this section [facility] No data available for this section [facility] Chief Complaint and Reason for Visit Chief Complaint elevated psa Chief Complaint E78.2 Z79.89 R73.01 Advance Directives No Advanced Directives Records Found Advance Directive Response Recorded Date/ Time Advance Directives No March 25, 2 018 5:13pm Summary Purpose Family History No Family History Records Found No data available for this section No Family History Records Found No data available for this section No data available for this section No data available for this section No Family History Records Found Additional Source Comments Care Team (unrecognized sect ion and content) Team Status: Inactive Member Role Status Dates Eusebia Bunting , DO Primary Care Provider Active Emmanuel Faulkner MD Attending Provider Active Team Status: Active Member Role Status Dates Eusebia Bunting , DO Primary Care Provider Active Team Status: Inactive Member Role Status Dates Eusebia Bunting , DO Primary Care Provider, Attending Anju david Active Goals (unrecognized section and content) Goals may be documented in a n alternate section (unrecognized sect ion and content) No Status Records FoundNo Status Records FoundNo Status Records Found INFORMATION SOURCE (unrecogn ized section and content) DATE CREATED AUTHOR 01/16/2023 [facility] DATE CREATED AUTHOR AUTHOR'S ORGANIZ ATION 09/20/2023 [facility] DATE CREATED AUTHOR AUTHOR'S ORGANIZ ATION 12/09/2023 [facility] FOR RECORDS PERTAINING TO PATIENTS WHO ARE OR HAVE BEEN ENROLLED IN A CHEMICAL DEPENDENCY/SUBSTANCEABUSE PROGRAM, SOME INFORMATION MAY BE OMITTED. This clinical summary was aggregated from multiple sources. Caution should be exercised in using it in the provision of clinical care. This summary normalizes information from multiple sources, and as a consequence, information in this document may materially change the coding, format and clinical context of patient data. In addition, data may be omitted in some cases. CLINICAL DECISIONS SHOULD BE BASED ON THE PRIMARY CLINICAL RECORDS. [facility]. provides no warranty or guarantee of the accuracy or completeness of information in this document.
[2023-12-26] MEDS: LACTATED RINGER'S SOLUTION 1,000 ML 50 ML IV (09:53)
[2023-12-26] MEDS: LEVOFLOXACIN IN DEXTROSE 5 % 500 MG/100 ML PIGGYBACK 100 MG IV (11:00)
--- NOTE | 2023-12-26 13:14 | P.URON_ITS ---
Urology Surgery Operative Note Operative Note Procedure Date: 12/26/23 Time Out Performed: yes Pre-op Diagnosis: BPH with LUTS refractory to medications Post-op Diagnosis: same as pre-op Procedures performed: 1. Cystoscopy. 2. Transurethral resection of the prostate. Anesthesia: GETA Primary Surgeon: Emmanuel Faulkner Complications: None Estimated blood loss (mL): 20 Findings: Large trilobar obstructing prostate Specimens: Prostate chips Drains: 22 Portuguese three-way coud? Leyva catheter taped to traction and CBI Indications for Procedures: Gentleman has BPH with LUTS for which he has been taking oral medications. His symptoms are bothersome despite taking medicine. He is desirous for TURP. He has signed an informed consent after all risks were explained to him. Some of these risks include bleeding, infection, anesthesia, retrograde ejaculation, urinary incontinence both temporary and permanent, erectile dysfunction and possible need for further operations to name a few. Detailed description of Procedure: The patient was brought to the operating room and placed on the operating room table in the supine position. SCDs were placed on the lower extremities and turned on and functioning during the entire case. Timeout was done by all parties in the room. We all agreed upon the patient's identification and the planned procedures for this patient. Genn. anesthesia was then administered. The patient was then repositioned into the modified dorsal lithotomy position. All pressure points were satisfactorily padded. Genitalia were sterilely prepped and draped in usual fashion. I started by passing a 26 Portuguese Olympus resectoscope with a standard bipolar loop electrode per urethra and into the bladder. The large median lobe protruded into the bladder. The ureteral orifices were marked with the loop electrode. I started on the median lobe and uniformly resected this down to the bladder neck level. I then resected posteriorly from the bladder neck to the Veru. The capacious left lateral lobe was then taken down from the bladder neck to the Veru level. The right lateral lobe and the anterior tissue were then similarly resected. The apex was then opened up. His apical lobes protruded distal to the Veru. These had to be opened in order to relieve coaptation and obstruction. Vaporization/coagulation loop was used to coagulate the resection bed. Further resection was also done with the vaporization loop. The Ilich evacuator was used to get the prostate chips out of the bladder and these were sent for permanent sections. The resection bed was evaluated and there was no bleeding. The prostatic urethra and bladder neck were now wide open. There were no chips in the bladder. There was no bleeding. The scope was then removed. I then placed a 22 Portuguese three-way coud? Leyva catheter in the bladder. The catheter was manually irrigated with a Emily syri nge to verify correct placement. 80 cc of fluid was placed in the balloon. CBI was started. It irrigated clear to pink. It was taped to traction. The anesthetic was then reversed. The patient was then transferred to PACU in stable condition. Urinary Catheter Management Urinary Catheter Management Urethral: Cath placed during this visit: no
[2023-12-26] MEDS: 0.9 % SODIUM CHLORIDE 1,000 ML 80 ML IV ×2 (13:21→20:36)
[2023-12-26] MEDS: HYDROCODONE/ACET 5-325 MG TABLET 1 TAB PO (14:29)
[2023-12-26] MEDS: SOLIFENACIN SUCCINATE 10 MG TABLET PO (14:29)
[2023-12-26] MEDS: SODIUM CHLORIDE 0.9% 3,000 ML IRRIG SOLN 3000 ML IRR ×6 (15:25→21:14)
[2023-12-26] MEDS: CEFAZOLIN SODIUM/DEXTROSE,ISO 1 GM/50 ML IV.SOLN IV ×2 (17:28→23:02)
[2023-12-26] MEDS: TAMSULOSIN HCL 0.4 MG CAPSULE PO (20:36)
[2023-12-27 01:00] VITALS: BP 122/77; PULSE 84; RESP 20; TEMP 36.3; O2SAT 95
[2023-12-27] MEDS: SODIUM CHLORIDE 0.9% 3,000 ML IRRIG SOLN 3000 ML IRR (03:42)
[2023-12-27 05:00] VITALS: BP 135/77; PULSE 78; RESP 20; TEMP 36.7; O2SAT 96
[2023-12-27] MEDS: TAMSULOSIN HCL 0.4 MG CAPSULE PO (09:49)
[2023-12-27] MEDS: SOLIFENACIN SUCCINATE 10 MG TABLET PO (09:49)
== END 2023-12-27 09:57 | disposition home or self-care (01) ==
LOC: SURGOUT 13:08 → MS 13:45
PROVIDERS: PCP Family Medicine; Visit Provider Urology
PROC: (CPT 52601; principal; 2023-12-26 10:30)
DX: N40.1 Benign prostatic hyperplasia with lower urinary tract symptoms (principal); R35.1 Nocturia; R39.15 Urgency of urination; M19.90 Unspecified osteoarthritis, unspecified site; F32.A Depression, unspecified; R97.20 Elevated prostate specific antigen [PSA]; L98.9 Disorder of the skin and subcutaneous tissue, unspecified; N41.1 Chronic prostatitis; Z86.16 Personal history of COVID-19; N13.8 Other obstructive and reflux uropathy; G47.30 Sleep apnea, unspecified; R12 Heartburn; Z96.659 Presence of unspecified artificial knee joint
CPT/HCPCS: 52601; 36415; 88305; 96365; J0690; J1100; J2405; J2704; J3010